=== PATIENT | male | born 1965 | race Caucasian/White ===

== ENCOUNTER → 2019-10-17 07:44 | Outpatient (CLI) | payer OTHER, SELFPAY ==
--- NOTE | ~2019-10-17 | CT_ITS ---
EXAMINATION: CT abdomen pelvis wo con DATE: 10/17/2019 08:03 INDICATION: History of bladder stone, urinary frequency TECHNIQUE: Computed tomography (CT) of the abdomen and pelvis was performed without intravenous contr ast. The dose-length product (DLP) was 492.64 mGy-cm. Automated exposure control and iterative recons truction technique were employed. COMPARISON: 07/21/2015 FINDINGS: Minimal dependent atelectasis is present in the lung bases. The heart size is normal. The l iver, spleen, pancreas, gallbladder, and adrenal glands are normal. The kidneys are unremarkable. The re is no hydronephrosis or hydroureter. Multiple tiny stones layer in the dependent portion of the bl adder. One stone measures up to 3 mm. There are calcifications of the prostate. No pathologically enl arged abdominal or pelvic lymph nodes are identified. There is no free intraperitoneal gas or evidenc e of bowel obstruction. The appendix is normal. A moderate volume of colonic stool is present. There is mild lower thoracic spondylosis. Colonic diverticulosis is present without evidence of diverticu litis. IMPRESSION: 1. Multiple bladder stones, the largest of which measures 3 mm. 2. Constipation Reviewed, dictated and finalized at location A. T TOSSER
== END ==
PROVIDERS: Visit Provider Urology
DX: Z87.448 Personal history of other diseases of urinary system (principal); K59.00 Constipation, unspecified; N21.0 Calculus in bladder
CPT/HCPCS: 74176

== ENCOUNTER 2020-04-27 20:06 | Emergency (ER) | payer OTHER, SELFPAY ==
[2020-04-27 20:23] VITALS: BP 124/70; PULSE 107; RESP 20; TEMP 38.1; O2SAT 97
[2020-04-27 21:11] LABS: Add Urine Microscopic? YES; Amorphous Sediment Urine Few; Appearance Urine Cloudy (Clear); Bacteria Urine Trace /hpf; Bilirubin Urine Negative (Negative); Color Urine Amber (Yellow); Glucose Urine UA Negative (Negative); Ketones Urine Negative (Negative); Leukocyte Esterase Ur 3+ LEU/UL (Negative); Nitrate Urine Negative (Negative); Protein Urine 1+ mg/dL (Negative); Specific Grav Ur 1.021 (1.001-1.035); Urobilinogen Urine Negative mg/dL (<2.0); WBC Urine >75 /hpf
[2020-04-27 21:13] LABS: Blood Urine Negative (Negative)
--- NOTE | 2020-04-27 21:33 | ED.FEVER ---
HPI - Fever General Chief Complaint: Fever Stated Complaint: fever, decreased UO Time Seen by Provider: 04/27/20 21:22 History of Present Illness HPI Narrative: Patient is a 55-year-old male who presents ER with dysuria and fever. Patient underwent a urodynamic study on where he had a catheter inserted into his bladder. He also has history of bladder stones. Reports he is unable to fully empty his bladder at that time. They then drained him and sent him home. Reports since then he has had a lot of urinary frequency especially at night. Cannot fully empty. He is developed dysuria. Today he developed a fever up to 102 ?F. No chest pain or chest pressure. No real abdominal pain or flank pain. PCP referred him to the ER for further evaluation. Had a similar episode like this 6 years ago. Related Data Home Medications Medication Instructions Recorded Confirmed albuterol sulfate 90 mcg/actuation 2 puff INHALATION Q4H PRN gm 09/14/19 04/09/20 aerosol inhaler alprazolam 0.25 mg tablet 0.25 mg PO DAILY PRN 09/14/19 04/09/20 montelukast 10 mg tablet 10 mg PO DAILY 09/14/19 04/09/20 tamsulosin 0.4 mg capsule 0.4 mg PO DAILY 09/14/19 04/09/20 triamcinolone acetonide 0.1 % 1 applic TOPICAL BID 09/14/19 04/09/20 topical cream triamcinolone acetonide 55 mcg 2 spray NASAL DAILY 04/09/20 04/09/20 nasal spray aerosol Allergies Allergy/AdvReac Type Severity Reaction Status Date / Time aspirin Allergy Unknown Skin Verified 04/27/20 20:55 Reaction ibuprofen Allergy Unknown Skin Verified 04/27/20 20:55 Reaction Penicillins Allergy Unknown Skin Verified 04/27/20 20:55 Reaction sulfamethoxazole Allergy Unknown HIVES Verified 04/27/20 20:55 sulfite Allergy Unknown Skin Verified 04/27/20 20:55 Reaction trimethoprim Allergy Unknown HIVES Verified 04/27/20 20:55 NAPROXEN SODIUM Allergy Unknown Unknown Uncoded 04/27/20 20:55 Review of Systems Review of Systems: All systems reviewed & are unremarkable except as noted in HPI and below Constitutional: Constitutional: Denies chills, Denies fatigue and Reports fever(s) ENT: Denies nasal congestion and Denies sore throat Cardiovascular: Cardiovascular: Denies chest pain, Denies rapid heart rate and Denies radiating jaw, neck or arm pain Respiratory: Respiratory: Denies cough, Denies dyspnea and Denies wheezing Gastrointestinal: Gastrointestinal: Denies abdominal pain, Denies nausea and Denies vomiting Genitourinary: Genitourinary: Reports oliguria, Reports dysuria and Reports urinary frequency PMFSH Past Medical History Medical History (Updated 04/27/20 @ 22:35 by Santy Santos MD) Calculus of kidney Colon polyp Enlarged prostate with lower urinary tract symptoms (LUTS) Obstructive sleep apnea Right rotator cuff tear Surgical History Surgical History (Updated 04/27/20 @ 21:35 by Santy Santos MD) H/O transurethral resection of prostate History of endoscopic sinus surgery Social History Social History Smoking status: Never smoker Alcohol intake: never Exam Narrative: Exam Narrative: GENERAL: Well-appearing, well-nourished, and in no acute distress. HEAD: Normocephalic, atraumatic. CHEST: Clear to auscultation. No respiratory distress. HEART: Regular rate and rhythm. Normal peripheral pulses. ABDOMEN: Soft, nontender, nondistended. EXTREMITIES: Normal range of motion. No edema. SKIN: Warm, dry, no rash. NEURO: Alert and oriented x3. PSYCH: Normal mood and affect. 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 Over 400 out. Will start on oral antibiotics and keep Santos in. Needs a follow-up with urology in the next week per Dr. Parker. Vital Signs Vital signs: Vital Signs Temperature 100.5 F H 04/27/20 20:23 Pulse Rate 107 H 04/27/20 20:23 Respiratory Rate 20 04/27/20 20:23 Blood Pressure 124/70 04/27/20 20:23 Pulse Oximetry 97
[2020-04-27 21:49] LABS: Basophils Absolute Auto 0.1 K/mm3 (0.0-0.1); Basophils Percent Auto 0.5 % (0.2-1.2); Eosinophils Absolute Auto 0.6 K/mm3 (0-0.3); Eosinophils Percent Auto 3.7 % (0-4.4); Hematocrit 42.1 % (42.0-52.0); Hemoglobin 14.5 g/dL (14.0-18.0); Immature Granulocyte Absolute 0.08 K/mm3 (0.00-0.031); Immature Granulocyte Percent A 0.5 % (0-0.5); Lymphocytes Absolute Auto 1.62 K/mm3 (0.9-3.2); Lymphocytes Percent Auto 9.9 % (18.3-44.2); Mean Corpuscular HGB Conc 34.4 g/dl (32-36); Mean Corpuscular Hemoglobin 31.6 pg (26-34); Mean Corpuscular Volume 91.7 fl (80-100); Mean Platelet Volume 9.8 fl (7.4-10.4); Monocytes Absolute Auto 1.4 K/mm3 (0.1-0.6); Monocytes Percent Auto 8.2 % (2.6-8.5); Neutrophils Absolute Auto 12.7 K/mm3 (1.3-6.7); Neutrophils Percent Auto 77.2 % (45.5-73.1); Platelet Count Result 196 k/mm3 (150-375); Red Blood Count 4.59 M/mm3 (4.6-6.20); Red Cell Distribution Width 13.2 % (11.5-14.5); White Blood Count 16.4 K/mm3 (4.5-10.0)
[2020-04-27 21:59] LABS: Potassium 3.7 mmol/L (3.4-5.0)
[2020-04-27 22:02] LABS: Anion Gap 8 mmol/L (8-16); Blood Urea Nitrogen 18 mg/dL (9-20); Calcium 8.7 mg/dL (8.4-10.2); Carbon Dioxide 25 mmol/L (22-30); Chloride 103 mmol/L (98-107); Estimated CRCL calculation 64 ml/min; Estimated Glomerular Filt Rate > 60; Glucose 123 mg/dL (75-110); Sodium 136 mmol/L (137-145)
[2020-04-27 23:19] VITALS: BP 120/77; PULSE 99; RESP 18; TEMP 37.7; O2SAT 99
== END 2020-04-27 23:21 | disposition home or self-care (01) ==
PROVIDERS: Emergency Provider Emergency Medicine; PCP Family Medicine
DX: N39.0 Urinary tract infection, site not specified (principal); R33.8 Other retention of urine; N40.1 Benign prostatic hyperplasia with lower urinary tract symptoms; G47.33 Obstructive sleep apnea (adult) (pediatric); Z87.442 Personal history of urinary calculi; Z86.010 Personal history of colon polyps
CPT/HCPCS: 36415; 51702; 80048; 81001; 85025; 87077; 87086; 87088; 87186; 99283

== ENCOUNTER 2020-05-13 03:21 | Outpatient (CLI) | payer OTHER, SELFPAY ==
[2020-05-13 20:03] LABS: SARS-CoV-2 RNA PCR Negative
== END 2020-05-13 03:22 | disposition home or self-care (01) ==
LOC: ANHCOVIDDT 03:21
PROVIDERS: PCP Family Medicine; Visit Provider Urology
DX: Z01.812 Encounter for preprocedural laboratory examination (principal); Z20.828 Contact with and (suspected) exposure to other viral communicable diseases
CPT/HCPCS: 87635; C9803; U0003

== ENCOUNTER 2020-05-13 08:29 | Outpatient (CLI) | payer OTHER, SELFPAY ==
--- NOTE | 2020-05-13 08:31 | ECG_ITS ---
Measurements Intervals [place] Rate: 66 P: 58 ID: 141 QRS: 28 QRSD: 94 T: 27 QT: 378 QTc: 397 Interpretive Statements SINUS RHYTHM DELAYED PRECORDIAL R/S TRANSITION NONSPECIFIC ST & T-WAVE ABNORMALITY- INFERIOR LEADS BASELINE ARTIFACT- I, II, III, AVR, AVL, AVF BORDERLINE ECG Electronically Signed On 05-13-2020 8:59:48 CDT by Sal Martinez D.O.
== END 2020-05-13 08:30 | disposition home or self-care (01) ==
LOC: ANHSURGERY 08:31
PROVIDERS: PCP Family Medicine; Visit Provider Urology
DX: Z01.818 Encounter for other preprocedural examination (principal); I49.9 Cardiac arrhythmia, unspecified
CPT/HCPCS: 93005

== ENCOUNTER 2020-05-15 01:39 | Day surgery (SDC) | payer OTHER, SELFPAY ==
[2020-05-06 08:21] VITALS: BMI 28.8
--- NOTE | 2020-05-15 06:45 | WPDHPUPDATE1 ---
History and Physical Update Update Date/Time: 05/15/20 06:45 History and Physical has been reviewed, including an updated exam of the patient. There are NO changes in the patient's condition. Risks, benefits, and alternatives have been discussed and questions answered. Patient agrees to proceed with procedure.
[2020-05-15 12:42] VITALS: BP 128/72; PULSE 57; RESP 18; TEMP 35.8; O2SAT 99
[2020-05-15] MEDS: LACTATED RINGERS 1,000 ML 30 ML IV CONT (13:00)
--- NOTE | 2020-05-15 13:26 | WPDANESEPPF ---
Anes - Initial Pre Proc Eval Procedure: Operation Date: 05/15/20 14:00 Proposed Procedures p Optical Internal Urethrotomy - Cale Parker MD Date/Time: 05/15/20 13:26 Surgeon: Cale Parker MD Pre Op Diagnosis: Bulbous Urethral Stricture Patient Data Age: 55 Gender: M Height: 5 ft 8 in Weight: 83.4 kg Last Vital Signs Temp 35.8 C L 05/15/20 12:42 Pulse 57 L 05/15/20 12:42 Resp 18 05/15/20 12:42 BP 128/72 05/15/20 12:42 Pulse Ox 99 05/15/20 12:42 Allergies Allergy/AdvReac Type Severity Reaction Status Date / Time Penicillins Allergy Unknown UNKNOWN Verified 05/15/20 12:47 REACTION sulfamethoxazole Allergy Unknown HIVES Verified 05/15/20 12:47 sulfite Allergy Unknown Skin Verified 05/15/20 12:47 Reaction trimethoprim Allergy Unknown HIVES Verified 05/15/20 12:47 aspirin AdvReac Unknown Gastrointestinal Verified 05/15/20 12:47 Upset ibuprofen AdvReac Unknown Gastrointestinal Verified 05/15/20 12:47 Upset NAPROXEN SODIUM AdvReac Unknown Gastrointestinal Uncoded 05/15/20 12:47 Upset Home Medications Medication Instructions Recorded Confirmed Type albuterol sulfate 90 mcg/actuation 2 puff INHALATION Q4H PRN gm 09/14/19 05/15/20 History aerosol inhaler alprazolam 0.25 mg tablet 0.25 mg PO DAILY PRN 09/14/19 05/15/20 History montelukast 10 mg tablet 10 mg PO DAILY 09/14/19 05/15/20 History tamsulosin 0.4 mg capsule 0.4 mg PO DAILY 09/14/19 05/15/20 History sertraline 50 mg tablet 50 mg PO DAILY #90 tablet 12/04/19 05/15/20 Rx fluticasone 250 mcg-salmeterol 50 1 inhalation INHALATION BID #60 04/09/20 05/15/20 Rx mcg/dose blistr powdr for each inhalation triamcinolone acetonide 55 mcg 2 spray NASAL DAILY PRN 04/09/20 05/15/20 History nasal spray aerosol Macuguard 1 cap PO DAILY 05/06/20 05/15/20 History Ultra Prostate 1 cap PO BID 05/06/20 05/15/20 History azelastine 2 spray INTRANASAL DIRECTED PRN 05/06/20 05/15/20 History garlic 2 mg PO BID 05/06/20 05/15/20 History multivitamin 1 tablet PO DAILY 05/06/20 05/15/20 History doxycycline hyclate 100 mg capsule 100 mg PO BID 10 Days #20 cap 05/07/20 05/15/20 Rx Patient hx anesthesia problems: none Family hx anesthesia problems: none PMFSH Past Medical History Medical History Calculus of kidney Colon polyp Enlarged prostate with lower urinary tract symptoms (LUTS) Obstructive sleep apnea Right rotator cuff tear Surgical History Surgical History H/O transurethral resection of prostate History of endoscopic sinus surgery Family History Family History Mother Cerebrovascular accident Social History Social History Smoking status: Never smoker Alcohol intake: never Drinks per week: 2 Spiritual care concerns: No Anes - Eval Final PreProcedure Day of Procedure 05/15/20 13:26 Patient weight: overweight Heart: regular rate and rhythm Lungs: clear to auscultation Airway: Mallampati scale class II Neurological: alert and oriented Last oral intake: >/= 8 hours ASA classification: III Emergent: no Anesthetic plan: proceed Anesthesia type and monitoring: general LMA and standard monitoring Informed Consent: The patient's anesthetic plan and its attendant risks and benefits were discussed with the patient/family/POA. Questions were solicited and answers provided to the satisfaction of the patient/family/POA.
[2020-05-15] MEDS: levoFLOXacin 500 MG/D5W 100 ML 500 MG/100 ML BAG 100 MG IVPB (14:56)
[2020-05-15] MEDS: LIDOCAINE HCL 2% GEL UROJET 10 ML PKG MUCOUS MEM (15:24)
[2020-05-15 15:31] VITALS: BP 103/71; PULSE 67; RESP 12; O2SAT 97
--- NOTE | 2020-05-15 15:42 | P.OP_ITS ---
Procedure Note - Detailed Date of procedure: 05/15/20 Pre-op diagnosis: Bulbous Urethral Stricture Post-op diagnosis: same Procedure performed: Optical internal urethrotomy Description of procedure: The patient was brought to the operative suite where he was prepped and draped in a routine sterile fashion while in a dorsal lithotomy position after the uneventful administration of systemic sedation by the anesthesia department. 2% Lidocaine was placed in the uretha and allowed to stand for an appropriate period of time. Cystoscopy was undertaken with a 19F rigid cystoscope. He has a moderately constricting stricture of the bulbous ure thra and proximal urethra. The bladder itself was endoscopically normal without foreign body or neoplasm. The bladder mucosa was without hyperemia. There was a single orthotopic ureteral orifice bilaterally with clear reflex of urine. Using the optical urethratome, I incised the strictured urethra at the 12 o'clock position care taken to avoid injury to the membranous urethra. An 18F Santos catheter was placed, the bladder was emptied and the patient was taken to the recovery room in good condition. Anesthesia: GLMA Surgeon: Cale Parker MD Estimated blood loss (mL): 0 Drains: Yes (18F Santos) Packing: No Pathology: none sent Complications: No immediate complications Condition: stable Disposition: PACU
[2020-05-15 16:00] VITALS: BP 112/66; PULSE 66; RESP 12; O2SAT 97
--- NOTE | 2020-05-15 16:09 | SUR.PHASEII ---
LARGE URINE BAG ORDERED FOR NIGHTTIME.
[2020-05-15 16:28] VITALS: BP 123/80; PULSE 59; RESP 12
== END 2020-05-15 16:52 | disposition home or self-care (01) ==
PROVIDERS: PCP Family Medicine; Visit Provider Urology
PROC: (CPT 52276; principal; 2020-05-15 14:00)
DX: N35.912 Unspecified bulbous urethral stricture, male (principal); G47.33 Obstructive sleep apnea (adult) (pediatric)
CPT/HCPCS: 52276; J1100; J1956; J2250; J2405; J2704; J3010; J7120

== ENCOUNTER → 2020-12-05 08:20 | Outpatient (CLI) | payer OTHER, SELFPAY ==
--- NOTE | ~2020-12-05 | CT_ITS ---
EXAMINATION: CT abdomen pelvis wo con DATE: 12/05/2020 08:39 INDICATION: History of bladder stones TECHNIQUE: Computed tomography (CT) of the abdomen and pelvis was performed without intravenous contr ast. The dose-length product (DLP) was 663.44 mGy-cm. Automated exposure control and iterative recons truction technique were employed. COMPARISON: 10/17/2019 FINDINGS: Minimal dependent atelectasis is present in the lung bases. The heart size is normal. The l iver, pancreas, gallbladder, and adrenal glands are normal. Punctate calcifications in an otherwise n ormal spleen likely represent healed granulomatous disease. The kidneys are unremarkable. There is no hydronephrosis or hydroureter. There are multiple stones layering in the dependent portion of the bl adder which measure up to 7 mm. There has been increase in size and number of the stones since the co mparison examination. The prostate is enlarged and demonstrates central calcification. No pathologica lly enlarged abdominal or pelvic lymph nodes are identified. There is no free intraperitoneal gas or evidence of bowel obstruction. IMPRESSION: 1. Multiple bladder stones, measuring up to 7 mm, with increase in size and number since the comparis on examination. Reviewed, dictated and finalized at location B. IMPRESSION: 1. Multiple bladder stones, measuring up to 7 mm, with increase in size and num sae since the comparison examination.
== END ==
PROVIDERS: PCP Family Medicine; Visit Provider Urology
DX: Z87.448 Personal history of other diseases of urinary system (principal); N21.0 Calculus in bladder
CPT/HCPCS: 74176

== ENCOUNTER → 2020-12-23 02:14 | Outpatient (CLI) | payer OTHER, SELFPAY ==
[2020-12-23 19:23] LABS: SARS-CoV-2 RNA PCR Negative
== END ==
PROVIDERS: PCP Family Medicine; Visit Provider Urology
DX: Z01.812 Encounter for preprocedural laboratory examination (principal); Z20.822 Contact with and (suspected) exposure to COVID-19
CPT/HCPCS: C9803; U0003; U0005

== ENCOUNTER 2020-12-25 01:05 | Day surgery (SDC) | payer OTHER, SELFPAY ==
[2020-12-16 14:11] VITALS: BMI 28.1
--- NOTE | 2020-12-18 07:19 | PM.HPGS ---
History of Present Illness History of Present Illness Consent: Risks, benefits, and alternatives have been discussed and questions answered. Patient agrees to proceed with procedure. Chief complaint: enlarged bladder stones Narrative: Mil Irvin is a 55 year old male with a history of recurring urethral strictures. After recently reporting passing several small stones a CT scan of the abdomen and pelvis reveals multiple bladder calculi up to 7 mm. He presents for cystoscopy with laser lithotripsy of bladder stone extraction Review of Systems Cardiovascular: Cardiovascular: Denies chest pain, Denies lightheadedness, Denies palpitations and Denies dyspnea Respiratory: Respiratory: Denies dyspnea Gastrointestinal: Gastrointestinal: Denies diarrhea, Denies nausea and Denies vomiting Genitourinary: Genitourinary: Denies hematuria and Denies dysuria Endocrine: Endocrine: Denies palpitations PMFSH Past Medical History Medical History Calculus of kidney Colon polyp Enlarged prostate with lower urinary tract symptoms (LUTS) Mixed hyperlipidemia Obstructive sleep apnea Overweight (BMI 25.0-29.9) Right rotator cuff tear Surgical History Surgical History H/O transurethral resection of prostate History of endoscopic sinus surgery Family History Family History Mother Cerebrovascular accident Social History Social History Smoking status: Never smoker Alcohol intake: current Drinks per week: 2 Substance use: never Substance use type: does not use Spiritual care concerns: No Meds Home Medications and Allergies Home Medications Medication Instructions Recorded Confirmed Type albuterol sulfate 90 mcg/actuation 2 puff INHALATION Q4H PRN gm 09/14/19 12/16/20 History aerosol inhaler alprazolam 0.25 mg tablet 0.25 mg PO DAILY PRN 09/14/19 12/16/20 History tamsulosin 0.4 mg capsule 0.4 mg PO DAILY 09/14/19 12/16/20 History fluticasone 250 mcg-salmeterol 50 1 inhalation INHALATION BID #60 04/09/20 12/16/20 Rx mcg/dose blistr powdr for each inhalation Ultra Prostate 1 cap PO BID 05/06/20 12/16/20 History garlic 2 mg PO BID 05/06/20 12/16/20 History multivitamin 1 tablet PO DAILY 05/06/20 12/16/20 History sertraline 50 mg tablet 50 mg PO DAILY #90 tablet 07/07/20 12/16/20 Rx atorvastatin 10 mg tablet 10 mg PO DAILY #90 tablet 10/10/20 12/16/20 Rx montelukast 10 mg PO DAILY 12/16/20 12/16/20 History Allergies Allergy/AdvReac Type Severity Reaction Status Date / Time sulfamethoxazole Allergy Severe HIVES Verified 12/16/20 14:28 trimethoprim Allergy Severe HIVES Verified 12/16/20 14:28 sulfite Allergy Mild Skin Verified 12/16/20 14:28 Reaction Penicillins Allergy Unknown UNKNOWN Verified 12/16/20 14:28 REACTION Sulfa (Sulfonamide Allergy Unknown Unknown Verified 12/16/20 14:28 Antibiotics) aspirin AdvReac Mild Gastrointestinal Verified 12/16/20 14:28 Upset ibuprofen AdvReac Mild Gastrointestinal Verified 12/16/20 14:28 Upset NAPROXEN SODIUM AdvReac Mild Gastrointestinal Uncoded 12/16/20 14:28 Upset Exam Const: General: no acute distress Resp: Effort & Inspection: normal respiratory effort GI: Inspection: non-distended GI Palp: No abdominal tenderness and No Guarding due to palpation present (GI) Auscultation: normal bowel sounds Assessment and Plan Assessment and plan (1) Enlarged prostate with lower urinary tract symptoms (LUTS): Code(s): N40.1 - Benign prostatic hyperplasia with lower urinary tract symptoms Status: Acute (2) Bladder stones: Code(s): N21.0 - Calculus in bladder Status: Acute Assessment and Plan: Cystoscopy, laser lithotripsy and extraction bladder stones
[2020-12-25 06:41] VITALS: BP 121/72; PULSE 54; RESP 14; TEMP 36.3; O2SAT 99
--- NOTE | 2020-12-25 07:06 | WPDANESEPPF ---
Anes - Initial Pre Proc Eval Procedure: Operation Date: 12/25/20 08:30 Proposed Procedures p Cystoscopy, Bladder Stone Extraction, - Cale Parker MD s Holmium Laser Lithotripsy - Cale Parker MD Date/Time: 12/25/20 07:06 Surgeon: Cale Parker MD Pre Op Diagnosis: enlarged bladder stones Patient Data Age: 55 Gender: M Height: 5 ft 8 in Weight: 84 kg Allergies Allergy/AdvReac Type Severity Reaction Status Date / Time sulfamethoxazole Allergy Severe HIVES Verified 12/16/20 14:28 trimethoprim Allergy Severe HIVES Verified 12/16/20 14:28 sulfite Allergy Mild Skin Verified 12/16/20 14:28 Reaction Penicillins Allergy Unknown UNKNOWN Verified 12/16/20 14:28 REACTION Sulfa (Sulfonamide Allergy Unknown Unknown Verified 12/16/20 14:28 Antibiotics) aspirin AdvReac Mild Gastrointestinal Verified 12/16/20 14:28 Upset ibuprofen AdvReac Mild Gastrointestinal Verified 12/16/20 14:28 Upset NAPROXEN SODIUM AdvReac Mild Gastrointestinal Uncoded 12/16/20 14:28 Upset Home Medications Medication Instructions Recorded Confirmed Type albuterol sulfate 90 mcg/actuation 2 puff INHALATION Q4H PRN gm 09/14/19 12/16/20 History aerosol inhaler alprazolam 0.25 mg tablet 0.25 mg PO DAILY PRN 09/14/19 12/16/20 History tamsulosin 0.4 mg capsule 0.4 mg PO DAILY 09/14/19 12/16/20 History fluticasone 250 mcg-salmeterol 50 1 inhalation INHALATION BID #60 04/09/20 12/16/20 Rx mcg/dose blistr powdr for each inhalation Ultra Prostate 1 cap PO BID 05/06/20 12/16/20 History garlic 2 mg PO BID 05/06/20 12/16/20 History multivitamin 1 tablet PO DAILY 05/06/20 12/16/20 History sertraline 50 mg tablet 50 mg PO DAILY #90 tablet 07/07/20 12/16/20 Rx atorvastatin 10 mg tablet 10 mg PO DAILY #90 tablet 10/10/20 12/16/20 Rx montelukast 10 mg PO DAILY 12/16/20 12/16/20 History Patient hx anesthesia problems: none Family hx anesthesia problems: none [facility] Past Medical History Medical History Calculus of kidney Colon polyp Enlarged prostate with lower urinary tract symptoms (LUTS) Mixed hyperlipidemia Obstructive sleep apnea Overweight (BMI 25.0-29.9) Right rotator cuff tear Surgical History Surgical History H/O transurethral resection of prostate History of endoscopic sinus surgery Family History Family History Mother Cerebrovascular accident Social History Social History Smoking status: Never smoker Alcohol intake: current Drinks per week: 2 Alcohol use details: 2-3/MONTH Substance use: never Substance use type: does not use Living arrangements: with family Spiritual care concerns: No Anes - Eval Final PreProcedure Day of Procedure 12/25/20 07:06 Patient weight: overweight Heart: regular rate and rhythm Lungs: decreased breath sounds Airway: Mallampati scale class II Neurological: alert and oriented Last oral intake: >/= 8 hours ASA classification: III Emergent: no Anesthetic plan: proceed Anesthesia type and monitoring: general LMA and standard monitoring Informed Consent: The patient's anesthetic plan and its attendant risks and benefits were discussed with the patient/family/POA. Questions were solicited and answers provided to the satisfaction of the patient/family/POA.
--- NOTE | 2020-12-25 07:22 | WPDHPUPDATE1 ---
History and Physical Update Update Date/Time: 12/25/20 07:22 History and Physical has been reviewed, including an updated exam of the patient. There are NO changes in the patient's condition. Risks, benefits, and alternatives have been discussed and questions answered. Patient agrees to proceed with procedure.
[2020-12-25 07:41] VITALS: BMI 28.5
[2020-12-25] MEDS: LACTATED RINGERS 1,000 ML 30 ML IV CONT (07:45)
[2020-12-25] MEDS: levoFLOXacin 500 MG/D5W 100 ML 500 MG/100 ML BAG 100 MG IVPB (08:29)
[2020-12-25 09:05] VITALS: BP 80/49; PULSE 61; RESP 10; O2SAT 95
--- NOTE | 2020-12-25 09:07 | PM.PROC ---
Procedure Note - Detailed Date of procedure: 12/25/20 Pre-op diagnosis: enlarged bladder stones Post-op diagnosis: other ( 1. Bulbous urethral stricture 2. Multiple bladder stones) Procedure performed: Cystoscopy, urethral dilatation and extraction bladder stones Description of procedure: patient is brought to the operative suite where he has prepped draped in routine sterile fashion while in dorsal lithotomy position. 2% xylocaine jelly was introduced into urethral in systemic sedation is administered per the anesthesia department. Cystoscopy is undertaken with a 19 F rigid cystoscope. He has a moderately constricting bulbous urethral stricture which I dilated from 16-24 F with Angi sounds. He has about 12-15 bladder stones and measure 1.0-1.5 cm in then multiple punctate stones. The larger stones were extracted using a 27 F resectoscope and loop to grasp them. The remainder of the stones were evacuated with the [employer] evacuator. There was negligible bleeding. I opted not to leave a urethral catheter. Scopes and wires removed. Anesthesia: MAC Surgeon: Cale Parker MD Estimated blood loss (mL): 0 Drains: No Packing: No Pathology: yes Complications: No immediate complications Condition: stable Disposition: PACU
[2020-12-25 09:10] VITALS: BP 110/66; PULSE 70; RESP 16; O2SAT 96
[2020-12-25 09:30] VITALS: BP 110/69; PULSE 67; RESP 16; O2SAT 96
[2020-12-25 09:55] VITALS: BP 125/71; PULSE 55; RESP 16; O2SAT 97
== END 2020-12-25 10:02 | disposition home or self-care (01) ==
PROVIDERS: PCP Family Medicine; Visit Provider Urology
PROC: (CPT 52352; principal; 2020-12-25 08:30)
DX: N21.0 Calculus in bladder (principal); N35.912 Unspecified bulbous urethral stricture, male; N40.1 Benign prostatic hyperplasia with lower urinary tract symptoms; E78.2 Mixed hyperlipidemia; G47.33 Obstructive sleep apnea (adult) (pediatric); Z79.51 Long term (current) use of inhaled steroids
CPT/HCPCS: 52310; 82365; 88300; A9270; C1769; J1956; J2250; J2310; J2704; J3010; J7120

== ENCOUNTER → 2021-04-11 02:15 | Outpatient (CLI) | payer OTHER, SELFPAY ==
[2021-04-12 01:35] LABS: SARS-CoV-2 RNA PCR Negative
== END ==
PROVIDERS: PCP Family Medicine; Visit Provider Family Medicine
DX: J02.9 Acute pharyngitis, unspecified (principal); R51.9 Headache, unspecified; Z20.822 Contact with and (suspected) exposure to COVID-19
CPT/HCPCS: C9803; U0003; U0005

== ENCOUNTER → 2022-01-21 14:39 | Outpatient (CLI) | payer OTHER, SELFPAY ==
--- NOTE | ~2022-01-21 | XR_ITS ---
EXAMINATION: XR hand RT min 3V INDICATION: Primary osteoarthritis of the right hand TECHNIQUE: Three views of the right hand are obtained. COMPARISON: None available FINDINGS: There is severe osteoarthritis of the fifth distal interphalangeal joint. Mild osteoarthrit is is noted in multiple other interphalangeal joints. No fracture is identified. The soft tissues are unremarkable. IMPRESSION: 1. 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 Reviewed, dictated and finalized at location F. IMPRESSION: 1. 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
== END ==
PROVIDERS: PCP Family Medicine; Visit Provider Family Medicine
DX: M19.041 Primary osteoarthritis, right hand (principal)
CPT/HCPCS: 73130

== ENCOUNTER 2022-08-18 09:00 | Emergency (ER) | payer OTHER, SELFPAY ==
--- NOTE | 2022-08-18 09:06 | PC.NURSE ---
PT WANTED AT [facility], ADVISED THIS WAS NOT ABLE TO BE DONE HERE AND HE DECIDED TO GO TO HIS UROLOGIST.
== END 2022-08-18 09:07 | disposition left against medical advice (07) ==
LOC: EXPGOSH 09:56
PROVIDERS: Emergency Provider Nurse Practitioner Family; PCP Urology
DX: Z53.21 Procedure and treatment not carried out due to patient leaving prior to being seen by health care provider (principal)
CPT/HCPCS: 99199

== ENCOUNTER 2022-09-09 01:58 | Day surgery (SDC) | payer OTHER, SELFPAY ==
[2022-09-03 14:46] VITALS: BMI 29.2
--- NOTE | 2022-09-03 14:53 | PC.NURSE ---
Report to the Outpatient Waiting Room, entrance under the green pavilion located off [facility], at time 1200 on date 09/09/22. Planned Procedure Time: 1400. Time changes happen often and if your time is changed the preop area will call you the afternoon before. - You and your visitor will be asked to self-screen and do not enter if you have any COVID symptoms. - Only one visitor is requested with a max of two and NO children visitors are allowed at this time. - The patient visitor may be requested to leave or wait in car when not with patient due to distancing restrictions. - A mask is optional within the hospital. Patients may have clear liquids (water, carbonated beverages, clear teas, apple juice) until 3 hours prior to surgery with a maximum of 20 ounces. - No food from midnight until time of surgery Take the following medications with a SIP of water the morning of surgery: INHALERS, SERTRALINE, XANAX IF NEEDED Medications to discontinue per physician: VITAMINS/SUPPLEMENTS Date to take last dose: 09/05/22 Please no make-up, nail japanese, hairspray, perfume, deodorant, or body powder the day of surgery. No jewelry (including any body piercings) or valuables the day of surgery, leave them at home. Please take a shower or bath the night before, or the morning of, surgery with an antibacterial soap. Wear comfortable, loose fitting clothing. - Jewelry must be removed prior to entering the operating room. Rings and piercings that are not removed may be cut off. - The hospital will not accept responsibility for valuables. - Please leave all valuables, including medications, at home the day of surgery. If you are going home after surgery, a licensed putaway driver must drive you home. - NO public transportation without another adult if you receive anesthesia. - We recommend that an adult stay with you for 24 hours following discharge. - We also recommend that you do not drive, make important decision, drink alcoholic beverages, or take any drugs that were not prescribed by your health care provider for at least 24 hours after your discharge time. Follow any additional instructions given to you from your surgeon. If you or anyone in your household have experienced Covid symptoms in the past week, please notify your surgeon or the nurse liaison at the phone number below for possible testing. Telephone instructions given to PT - JUANITO LION and asked if any additional questions and then verbalized understanding. Patient advised to call surgeon office or pre surgery nurse liaison [phone] if any additional questions.
--- NOTE | 2022-09-08 12:22 | WPDANESEPPF ---
Anes - Initial Pre Proc Eval Procedure: Operation Date: 09/09/22 13:30 Proposed Procedures p Cystoscopy, Urethral Dilatation, Bladder Stone Extraction - Cale Pakrer MD Date/Time: 09/08/22 12:22 Surgeon: Cale Parker MD Pre Op Diagnosis: bladder stones, Patient Data Age: 57 Gender: M Height: 1.73 m Weight: 87.1 kg Allergies Allergy/AdvReac Type Severity Reaction Status Date / Time sulfamethoxazole Allergy Severe HIVES Verified 09/09/22 11:40 trimethoprim Allergy Severe HIVES Verified 09/09/22 11:40 sulfite Allergy Mild Skin Verified 09/09/22 11:40 Reaction Penicillins Allergy Unknown UNKNOWN Verified 09/09/22 11:40 REACTION Sulfa (Sulfonamide Allergy Unknown Rash Verified 09/09/22 11:40 Antibiotics) aspirin AdvReac Mild Gastrointestinal Verified 09/09/22 11:40 Upset ibuprofen AdvReac Mild Gastrointestinal Verified 09/09/22 11:40 Upset NAPROXEN SODIUM AdvReac Mild Gastrointestinal Uncoded 09/09/22 11:40 Upset Home Medications Medication Instructions Recorded Confirmed Type albuterol sulfate 90 mcg/actuation 2 puff inhalation Q4H PRN 09/14/19 09/09/22 History aerosol inhaler (ProAir HFA) Shortness Of Breath alprazolam 0.25 mg tablet 0.25 mg PO DAILY PRN Anxiety 09/14/19 09/09/22 History tamsulosin 0.4 mg capsule 0.4 mg PO DAILY 09/14/19 09/09/22 History garlic 2 mg PO BID 05/06/20 09/09/22 History multivitamin 1 tablet PO DAILY 05/06/20 09/09/22 History sertraline 50 mg tablet See Rx Instructions .Route 06/11/22 09/09/22 Rx .COMPLEX #90 tabs meloxicam 15 mg tablet 15 mg PO DAILY #90 tabs 07/29/22 09/09/22 Rx montelukast 10 mg tablet See Rx Instructions .Route 07/29/22 09/09/22 Rx .COMPLEX #90 tabs fluticasone 250 mcg-salmeterol 50 1 inh inhalation BID 09/03/22 09/09/22 History mcg/dose blistr powdr for inhalation (Advair Diskus) cephalexin 500 mg capsule 500 mg PO Q8H #12 caps 09/09/22 Rx hydrocodone 5 mg-acetaminophen 325 1 - 2 tablet PO Q6H PRN pain #20 09/09/22 Rx mg tablet tabs Patient hx anesthesia problems: none Family hx anesthesia problems: none Results Review: All pre-operative results and documents have been reviewed as part of the pre-operative evaluation. REPLACED BY [facility] Past Medical History Medical History (Updated 09/08/22 @ 12:23 by Lobo Loya, ) Anxiety Asthma Calculus of kidney Colon polyp COPD (chronic obstructive pulmonary disease) COVID-19 Depression Enlarged prostate with lower urinary tract symptoms (LUTS) Mixed hyperlipidemia Obstructive sleep apnea do not use CPAP Overweight (BMI 25.0-29.9) Right rotator cuff tear Tubular adenoma of colon Surgical History Surgical History H/O transurethral resection of prostate History of endoscopic sinus surgery Family History Family History Mother Cerebrovascular accident Social History Social History Smoking status: Never smoker Alcohol intake: current Drinks per week: 2 Alcohol use details: 2-3/MONTH Substance use: never Substance use type: does not use Living arrangements: with family Spiritual care concerns: No Anes - Eval Final PreProcedure Day of Procedure 09/08/22 12:22 Patient weight: overweight Heart: regular rate and rhythm Lungs: clear to auscultation Airway: Mallampati scale class II Neurological: alert and oriented Last oral intake: >/= 8 hours ASA classification: III Emergent: no Anesthetic plan: proceed Anesthesia type and monitoring: general LMA and standard monitoring Results Review: All pre-operative results and documents have been reviewed as part of the pre-operative evaluation. Informed Consent: The patient's anesthetic plan and its attendant risks and benefits were discussed with the patient/family/POA. Questions were solicite
[2022-09-09] VITALS (8 sets, daily range): BP systolic 118–141; BP diastolic 69–88; PULSE 63–95; RESP 10–16; TEMP 36.3–36.6; O2SAT 95–100
--- NOTE | 2022-09-09 06:30 | WPDHPUPDATE1 ---
History and Physical Update Update Date/Time: 09/09/22 06:30 History and Physical has been reviewed, including an updated exam of the patient. There are NO changes in the patient's condition. Risks, benefits, and alternatives have been discussed and questions answered. Patient agrees to proceed with procedure.
[2022-09-09] MEDS: LACTATED RINGERS 1,000 ML 30 ML IV CONT ×3 (12:02→15:06)
--- NOTE | 2022-09-09 12:22 | P.PNAN_ITS ---
Anes - Eval Final PreProcedure Day of Procedure 09/09/22 12:22 Patient weight: normal Heart: regular rate and rhythm Lungs: clear to auscultation Airway: Mallampati scale class II Neurological: alert and oriented Last oral intake: >/= 8 hours ASA classification: III Emergent: no Anesthetic plan: proceed Anesthesia type and monitoring: general LMA and standard monitoring Results Review: All pre-operative results and documents have been reviewed as part of the pre- operative evaluation. Informed Consent: The patient's anesthetic plan and its attendant risks and benefits were discussed with the patient/family/POA. Questions were solicited and answers provided to the satisfaction of the patient/family/POA.
[2022-09-09] MEDS: ceFAZolin 2 GM/D5W 50 ML 2 GM/50 ML BAG IVPB (13:05)
--- NOTE | 2022-09-09 14:39 | P.OP_ITS ---
Procedure Note - Detailed Date of Procedure 09/09/22 Pre-op Diagnosis Urethral stricture, bladder stones Post-op Diagnosis Same Procedure Performed TUIP, later lithotripsy/extraction bladder stones Surgeon Cale Parker MD Anesthesia General Description of Procedure Patient is brought to the operative suite was prepped draped in routine sterile fashion while in dorsal lithotomy position. This is done after the uneventful induction of a general LMA anesthetic. Cystoscopy is undertaken with a 19 F rigid cystoscope. He had minimal prostatic hyperplasia with a somewhat high median bar. There were no urethral strictures. His bladder does demonstrate 2 proximally 3 cm stones. There was no intravesical neoplasm. As per my discussion with the patient immediately preoperatively we did opt to do a gentle transurethral incision of the prostate, in the absence of urethral strictures. Using a Lai knife and incised at the 6 o'clock position from the bladder neck to the verumontanum. This incision which was carried down approximately 1- 2 cm. I then turned our attention to laser lithotripsy of his bladder stones. Using a 910 micron fiber I fractured the stones into small pieces which could be evacuated with an [employer] evacuator. Placed an 18 F urethral catheter drainage. This the urethra scope was removed the patient was taken to recovery room good condition. Drains Yes Packing No Pathology Yes Complications No immediate complications Condition Stable
[2022-09-09] MEDS: fentaNYL CITRATE INJ (*CRX) 100 MCG/2 ML VIAL 25 MCG IV PUSH ×4 (14:43→15:05)
--- NOTE | 2022-09-09 14:50 | SUR.PHASEI ---
dr rangel at bedside and is aware that pt urine is red and cloudy but still flowing. no new orders continue to monitor. no clots noted
--- NOTE | 2022-09-09 14:58 | SUR.PHASEI ---
dr rangel irrigated pt henderson and red urine and some string blood clots came out.
[2022-09-09] MEDS: oxyCODONE HCL (*CRX) 5 MG TAB IR PO (16:00)
== END 2022-09-09 16:27 | disposition home or self-care (01) ==
PROVIDERS: PCP Family Medicine; Visit Provider Urology
PROC: 0T7D8ZZ Dilation of Urethra, Via Natural or Artificial Opening Endoscopic (ICD-10-PCS; CPT 52281; principal; 2022-09-09 13:30)
DX: N21.0 Calculus in bladder (principal); N40.1 Benign prostatic hyperplasia with lower urinary tract symptoms; R33.8 Other retention of urine; R39.198 Other difficulties with micturition; J44.9 Chronic obstructive pulmonary disease, unspecified; E78.2 Mixed hyperlipidemia; G47.33 Obstructive sleep apnea (adult) (pediatric); F41.9 Anxiety disorder, unspecified; F32.A Depression, unspecified; Z79.51 Long term (current) use of inhaled steroids
CPT/HCPCS: 52318; 52450; 82365; 88300; A9270; J0690; J1100; J2250; J2405; J2704; J3010; J7120

== ENCOUNTER 2022-09-19 16:25 | Emergency (ER) | payer OTHER, SELFPAY ==
[2022-09-19 16:44] VITALS: BP 170/98; PULSE 97; RESP 18; TEMP 36.8; O2SAT 100
--- NOTE | 2022-09-19 17:05 | ED.GENADULT ---
HPI - General Adult General Chief complaint: Urogenital-Male Stated complaint: NEED A CATHETER PUT IN Time Seen by Provider: 09/19/22 16:52 Source: RN notes reviewed History of Present Illness HPI narrative: Patient presents to emergency room from home for urinary retention. Patient states that he had a procedure done by Dr. Parker on 119 for removal of bladder stones and a TURP states that since that time has been having to self cath and has been self cathing 3-4 times a day. states that he has been unable to catheterize himself since last night and is not able to urinate this evening having lower abdominal pressure and distention he denies any fevers or chills chest pain or shortness of breath Related Data Home Medications Medication Instructions Recorded Confirmed albuterol sulfate 90 mcg/actuation 2 puff inhalation Q4H PRN 09/14/19 09/09/22 aerosol inhaler (ProAir HFA) Shortness Of Breath alprazolam 0.25 mg tablet 0.25 mg PO DAILY PRN Anxiety 09/14/19 09/09/22 tamsulosin 0.4 mg capsule 0.4 mg PO DAILY 09/14/19 09/09/22 garlic 2 mg PO BID 05/06/20 09/09/22 multivitamin 1 tablet PO DAILY 05/06/20 09/09/22 fluticasone 250 mcg-salmeterol 50 1 inh inhalation BID 09/03/22 09/09/22 mcg/dose blistr powdr for inhalation (Advair Diskus) Allergies Allergy/AdvReac Type Severity Reaction Status Date / Time sulfamethoxazole Allergy Severe HIVES Verified 09/19/22 17:28 trimethoprim Allergy Severe HIVES Verified 09/19/22 17:28 sulfite Allergy Mild Skin Verified 09/19/22 17:28 Reaction Penicillins Allergy Unknown UNKNOWN Verified 09/19/22 17:28 REACTION Sulfa (Sulfonamide Allergy Unknown Rash Verified 09/19/22 17:28 Antibiotics) aspirin AdvReac Mild Gastrointestinal Verified 09/19/22 17:28 Upset ibuprofen AdvReac Mild Gastrointestinal Verified 09/19/22 17:28 Upset NAPROXEN SODIUM AdvReac Mild Gastrointestinal Uncoded 09/19/22 17:28 Upset Review of Systems Review of Systems: Gen.: Denies fevers or chills ENT: Denies congestion Respiratory: Denies shortness of breath or cough CV: Denies chest pain or palpitations GI: Reports lower abdominal pain, denies nausea vomiting diarrhea HPI Musculoskeletal: Denies back pain or muscle pain Neuro: Denies numbness, tingling, weakness or focal weakness Skin: Denies rash Except as documented, all other systems reviewed and negative [facility] Past Medical History Medical History Anxiety Asthma Calculus of kidney Colon polyp COPD (chronic obstructive pulmonary disease) COVID-19 Depression Enlarged prostate with lower urinary tract symptoms (LUTS) Mixed hyperlipidemia Obstructive sleep apnea do not use CPAP Overweight (BMI 25.0-29.9) Right rotator cuff tear Tubular adenoma of colon Surgical History Surgical History H/O transurethral resection of prostate History of endoscopic sinus surgery Family History Family History Mother Cerebrovascular accident Social History Social History Smoking status: Never smoker Alcohol intake: current Drinks per week: 2 Alcohol use details: 2-3/MONTH Substance use: never Substance use type: does not use Living arrangements: with family Spiritual care concerns: No Exam Narrative: APPEARANCE: No acute distress, nontoxic, resting in bed EYES: EOMI HEENT: Normocephalic, atraumatic, OMM RESPIRATORY: No respiratory distress Clear to auscultation bilaterally with no rhonchi wheezing or rales. CARDIOVASCULAR: Regular rate and rhythm without murmurs rubs or gallops. ABDOMINAL: Soft, tender palpation suprapubic region with distention present no rebound or guarding MUSCULOSKELETAl: Moves all extremities. No clubbing, cyanosis or edema. NEURO: Awake and alert. Following comman
[2022-09-19 17:31] VITALS: BP 119/71; PULSE 79; RESP 18; TEMP 36.6; O2SAT 97
[2022-09-19 17:34] LABS: Bilirubin Urine Negative (Negative); Blood Urine 3+ (Negative); Color Urine Yellow (Yellow); Glucose Urine UA Negative (Negative); Ketones Urine Negative (Negative); Leukocyte Esterase Ur 3+ LEU/UL (Negative); Nitrate Urine Positive (Negative); Protein Urine 2+ mg/dL (Negative); Specific Grav Ur 1.025 (1.001-1.035); Urobilinogen Urine 0.2 mg/dL (<2.0)
[2022-09-19 17:35] LABS: Add Urine Microscopic? YES; Appearance Urine Slightly Cloudy (Clear)
[2022-09-19 17:50] LABS: Bacteria Urine Trace /hpf; RBC Urine >75 /hpf (0-2); WBC Clumps Urine Present /HPF; WBC Urine >75 /hpf
[2022-09-19] MEDS: CIPROFLOXACIN 500 MG TAB PO (18:01)
== END 2022-09-19 18:18 | disposition home or self-care (01) ==
LOC: ANHED 18:00
PROVIDERS: Emergency Provider Emergency Medicine; PCP Family Medicine
DX: N40.1 Benign prostatic hyperplasia with lower urinary tract symptoms (principal); R33.8 Other retention of urine; N39.0 Urinary tract infection, site not specified; J44.9 Chronic obstructive pulmonary disease, unspecified; F41.9 Anxiety disorder, unspecified; F32.A Depression, unspecified; Z90.79 Acquired absence of other genital organ(s); Z86.16 Personal history of COVID-19; Z87.442 Personal history of urinary calculi; Z86.010 Personal history of colon polyps; G47.33 Obstructive sleep apnea (adult) (pediatric); E78.2 Mixed hyperlipidemia
CPT/HCPCS: 51703; 81001; 87077; 87086; 87186; 99283; A9270

== ENCOUNTER 2022-09-20 19:33 | Emergency (ER) | payer OTHER, SELFPAY ==
[2022-09-20 19:35] VITALS: BP 115/68; PULSE 99; RESP 18; TEMP 37.3; O2SAT 99
[2022-09-20] MEDS: SODIUM CHLORIDE 0.9% IV 1,000 ML 999 ML IV CONT (20:15)
--- NOTE | 2022-09-20 20:15 | PC.NURSE ---
pt states he had bladder and was here yesterday for catheter. states today he had a temp of 103 so surgeon told him to come in for eval because he may be septic. states denies any other complaints. took tylenol at 1830.
[2022-09-20 20:30] LABS: Basophils Absolute Auto 0.1 K/mm3 (0.0-0.1); Basophils Percent Auto 0.4 % (0.2-1.2); Eosinophils Percent Auto 0.3 % (0-4.4); Hematocrit 43.9 % (42.0-52.0); Hemoglobin 14.6 g/dL (14.0-18.0); Immature Granulocyte Absolute 0.06 K/mm3 (0.00-0.031); Immature Granulocyte Percent A 0.5 % (0-0.5); Lymphocytes Absolute Auto 1.03 K/mm3 (0.9-3.2); Lymphocytes Percent Auto 8.3 % (18.3-44.2); Mean Corpuscular HGB Conc 33.3 g/dl (32-36); Mean Corpuscular Hemoglobin 31.1 pg (26-34); Mean Corpuscular Volume 93.6 fl (80-100); Mean Platelet Volume 9.2 fl (7.4-10.4); Monocytes Absolute Auto 0.9 K/mm3 (0.1-0.6); Monocytes Percent Auto 7.2 % (2.6-8.5); Neutrophils Absolute Auto 10.4 K/mm3 (1.3-6.7); Neutrophils Percent Auto 83.3 % (45.5-73.1); Platelet Count Result 216 k/mm3 (150-375); Red Blood Count 4.69 M/mm3 (4.6-6.20); Red Cell Distribution Width 13.2 % (11.5-14.5); White Blood Count 12.4 K/mm3 (4.5-10.0)
--- NOTE | 2022-09-20 20:35 | ED.GENADULT ---
HPI - General Adult General Chief complaint: Fever Stated complaint: [id number] for sepsis workup Time Seen by Provider: 09/20/22 19:43 History of Present Illness HPI narrative: 57-year-old male presents to the emergency room for evaluation of fever. Patient states he was seen here yesterday for urinary retention. Patient recently had multiple bladder stones in the removed and a TURP by Dr. Parker on 09/09. Stated he was having difficulty catheterizing himself yesterday which is what brought him into the emergency room. States today he developed a fever of 103.0 taken by a mercury thermometer under the armpit. Patient took a gram of Tylenol 2 hours prior to arrival. Reported having body aches and chills. Denies any abdominal pain lower back pain. Denies sinus congestion, postnasal drip, cough or shortness of breath. Related Data Home Medications Medication Instructions Recorded Confirmed albuterol sulfate 90 mcg/actuation 2 puff inhalation Q4H PRN 09/14/19 09/09/22 aerosol inhaler (ProAir HFA) Shortness Of Breath alprazolam 0.25 mg tablet 0.25 mg PO DAILY PRN Anxiety 09/14/19 09/09/22 tamsulosin 0.4 mg capsule 0.4 mg PO DAILY 09/14/19 09/09/22 garlic 2 mg PO BID 05/06/20 09/09/22 multivitamin 1 tablet PO DAILY 05/06/20 09/09/22 fluticasone 250 mcg-salmeterol 50 1 inh inhalation BID 09/03/22 09/09/22 mcg/dose blistr powdr for inhalation (Advair Diskus) Allergies Allergy/AdvReac Type Severity Reaction Status Date / Time sulfamethoxazole Allergy Severe HIVES Verified 09/19/22 17:28 trimethoprim Allergy Severe HIVES Verified 09/19/22 17:28 sulfite Allergy Mild Skin Verified 09/19/22 17:28 Reaction Penicillins Allergy Unknown UNKNOWN Verified 09/19/22 17:28 REACTION Sulfa (Sulfonamide Allergy Unknown Rash Verified 09/19/22 17:28 Antibiotics) aspirin AdvReac Mild Gastrointestinal Verified 09/19/22 17:28 Upset ibuprofen AdvReac Mild Gastrointestinal Verified 09/19/22 17:28 Upset NAPROXEN SODIUM AdvReac Mild Gastrointestinal Uncoded 09/19/22 17:28 Upset Review of Systems Review of Systems: CONSTITUTIONAL: Reports fever EYES: Denies visual changes, redness, or discharge. ENT: Denies rhinorrhea, congestion, sore throat, or otalgia. CARDIOVASCULAR: Denies chest pain, palpitations, or edema. RESPIRATORY: Denies cough or dyspnea. GASTROINTESTINAL: Denies abdominal pain, nausea, vomiting, or diarrhea. GENITOURINARY: Denies dysuria or hematuria. SKIN: Denies rash or itching. MUSCULOSKELETAL: Denies back pain, joint pain, or myalgia. NEUROLOGIC: Denies headache, numbness, dizziness, or weakness. PSYCHIATRIC: Denies anxiety or depression. [facility] Past Medical History Medical History Anxiety Asthma Calculus of kidney Colon polyp COPD (chronic obstructive pulmonary disease) COVID-19 Depression Enlarged prostate with lower urinary tract symptoms (LUTS) Mixed hyperlipidemia Obstructive sleep apnea do not use CPAP Overweight (BMI 25.0-29.9) Right rotator cuff tear Tubular adenoma of colon Surgical History Surgical History H/O transurethral resection of prostate History of endoscopic sinus surgery Family History Family History Mother Cerebrovascular accident Social History Social History Smoking status: Never smoker Alcohol intake: current Drinks per week: 2 Alcohol use details: 2-3/MONTH Substance use: never Substance use type: does not use Living arrangements: with family Spiritual care concerns: No Exam Narrative: GENERAL: Well-appearing, well-nourished, no physical limitations, and in no acute distress. HEAD: Normocephalic, atraumatic. EYES: Conjunctivae normal, PERRLA and EOMI. CHEST: Clear to auscultation. No respiratory distress. No
[2022-09-20 20:41] LABS: Lactic Acid Reflex 1.6 mmol/L (0.7-2.0)
[2022-09-20 20:42] LABS: Alanine Aminotransferase 26 U/L (6-50); Albumin Level 4.3 g/dL (3.5-5.1); Alkaline Phosphatase 75 U/L (38-126); Anion Gap 10 mmol/L (8-16); Aspartate Amino Transferase 29 U/L (17-59); Bilirubin,Total 0.8 mg/dL (0.2-1.3); Blood Urea Nitrogen 19 mg/dL (9-20); Calcium 8.7 mg/dL (8.4-10.2); Carbon Dioxide 24 mmol/L (22-30); Chloride 103 mmol/L (98-107); Estimated CRCL calculation 57 ml/min; Estimated Glomerular Filt Rate > 60; Glucose 121 mg/dL (65-110); Potassium 3.7 mmol/L (3.4-5.0); Sodium 137 mmol/L (137-145)
[2022-09-20 21:39] LABS: Appearance Urine Slightly Cloudy (Clear); Bilirubin Urine Negative (Negative); Blood Urine 2+ (Negative); Color Urine Light Yellow (Yellow); Glucose Urine UA Negative (Negative); Ketones Urine Negative (Negative); Leukocyte Esterase Ur 2+ LEU/UL (Negative); Nitrate Urine Negative (Negative); Protein Urine Negative (Negative); Urobilinogen Urine 0.2 mg/dL (<2.0)
[2022-09-20 21:42] LABS: Amorphous Sediment Urine Few; Bacteria Urine Trace /hpf; Mucus Urine Rare /lpf; Squamous Epithelial Cell Urine Rare /hpf (Few); WBC Urine 51-75 /hpf
[2022-09-20 21:47] LABS: Add Urine Microscopic? YES
[2022-09-20 21:57] VITALS: BP 129/64; PULSE 74; RESP 16; O2SAT 97
== END 2022-09-20 22:02 | disposition home or self-care (01) ==
PROVIDERS: Emergency Provider Nurse Practitioner Family; PCP Family Medicine
DX: N39.0 Urinary tract infection, site not specified (principal); R50.9 Fever, unspecified; J44.9 Chronic obstructive pulmonary disease, unspecified; N40.1 Benign prostatic hyperplasia with lower urinary tract symptoms; E78.2 Mixed hyperlipidemia; G47.33 Obstructive sleep apnea (adult) (pediatric); F32.A Depression, unspecified; F41.9 Anxiety disorder, unspecified; E66.3 Overweight; Z68.29 Body mass index [BMI] 29.0-29.9, adult; Z86.010 Personal history of colon polyps; Z86.16 Personal history of COVID-19; Z87.442 Personal history of urinary calculi; Z90.79 Acquired absence of other genital organ(s)
CPT/HCPCS: 36415; 80053; 81001; 83605; 85025; 87086; 96360; 99283; J7030

== ENCOUNTER 2022-10-08 14:53 | Emergency (ER) | payer OTHER, SELFPAY ==
[2022-10-08] VITALS (14 sets, daily range): BP systolic 112–140; BP diastolic 71–83; PULSE 88–104; RESP 16–18; TEMP 37–37.4; O2SAT 94–97
--- NOTE | 2022-10-08 17:41 | ED.MALEGU ---
HPI - Male Genitourinary General Chief complaint: Urogenital-Male Stated complaint: urogenital Time Seen by Provider: 10/08/22 17:17 History of Present Illness HPI Narrative: Patient is a 57-year-old male presenting with urinary retention. Patient states that he has had numerous procedures with Dr. More for bladder stones and enlarged prostate. States that he was recently diagnosed with a UTI several weeks ago and he required a Santos catheter. States that it was able to be removed but unfortunately for the last day he has not been able to urinate spontaneously. States that he straight caths himself before bed each night and he was able to straight cath himself earlier today to relieve the pressure. States that he maybe had some dysuria earlier. Denies fevers, chest pain, shortness of breath, cough, abdominal pain, vomiting, diarrhea, leg swelling. States that he called Dr. Parker' office earlier today and there was no one to see him so he was advised to come to the ER. Related Data Home Medications Medication Instructions Recorded Confirmed albuterol sulfate 90 mcg/actuation 2 puff inhalation Q4H PRN 09/14/19 09/09/22 aerosol inhaler (ProAir HFA) Shortness Of Breath alprazolam 0.25 mg tablet 0.25 mg PO DAILY PRN Anxiety 09/14/19 09/09/22 tamsulosin 0.4 mg capsule 0.4 mg PO DAILY 09/14/19 09/09/22 garlic 2 mg PO BID 05/06/20 09/09/22 multivitamin 1 tablet PO DAILY 05/06/20 09/09/22 fluticasone 250 mcg-salmeterol 50 1 inh inhalation BID 09/03/22 09/09/22 mcg/dose blistr powdr for inhalation (Advair Diskus) Allergies Allergy/AdvReac Type Severity Reaction Status Date / Time sulfamethoxazole Allergy Severe HIVES Verified 09/19/22 17:28 trimethoprim Allergy Severe HIVES Verified 09/19/22 17:28 sulfite Allergy Mild Skin Verified 09/19/22 17:28 Reaction Penicillins Allergy Unknown UNKNOWN Verified 09/19/22 17:28 REACTION Sulfa (Sulfonamide Allergy Unknown Rash Verified 09/19/22 17:28 Antibiotics) aspirin AdvReac Mild Gastrointestinal Verified 09/19/22 17:28 Upset ibuprofen AdvReac Mild Gastrointestinal Verified 09/19/22 17:28 Upset NAPROXEN SODIUM AdvReac Mild Gastrointestinal Uncoded 09/19/22 17:28 Upset Review of Systems Review of Systems: All systems reviewed & are unremarkable except as noted in HPI and below PMFSH Past Medical History Medical History Anxiety Asthma Calculus of kidney Colon polyp COPD (chronic obstructive pulmonary disease) COVID-19 Depression Enlarged prostate with lower urinary tract symptoms (LUTS) Mixed hyperlipidemia Obstructive sleep apnea do not use CPAP Overweight (BMI 25.0-29.9) Right rotator cuff tear Tubular adenoma of colon Surgical History Surgical History H/O transurethral resection of prostate History of endoscopic sinus surgery Family History Family History Mother Cerebrovascular accident Social History Social History Smoking status: Never smoker Alcohol intake: current Drinks per week: 2 Alcohol use details: 2-3/MONTH Substance use: never Substance use type: does not use Living arrangements: with family Spiritual care concerns: No Exam Narrative: GENERAL: Well-appearing, well-nourished, and in no acute distress. HEAD: Normocephalic, atraumatic. EYES: PERRLA and EOMI. ENT: Nares clear, no rhinorrhea or epistaxis. Mucous membranes moist. NECK: Supple. CHEST: Clear to auscultation. No respiratory distress. HEART: Regular rate and rhythm. Normal peripheral pulses. ABDOMEN: Soft, nontender, nondistended EXTREMITIES: Normal range of motion. No edema. SKIN: Warm, dry, no rash. NEURO: No focal deficits. Alert and oriented x3. PSYCH: Normal mood and affect. Course Vital Signs Vital
[2022-10-08 18:45] LABS: Appearance Urine Slightly Cloudy (Clear); Bilirubin Urine 1+ (Negative); Blood Urine 3+ (Negative); Color Urine Yellow (Yellow); Glucose Urine UA Negative (Negative); Ketones Urine Trace mg/dL (Negative); Leukocyte Esterase Ur 1+ LEU/UL (Negative); Nitrate Urine Positive (Negative); Protein Urine 3+ mg/dL (Negative); Specific Grav Ur >= 1.030 (1.001-1.035); Urobilinogen Urine 0.2 mg/dL (<2.0); pH Urine 5.5 (5.0-9.0)
[2022-10-08 18:52] LABS: Add Urine Microscopic? YES; Bacteria Urine 1+ /hpf; Mucus Urine Few /lpf; RBC Urine 21-50 /hpf (0-2); WBC Clumps Urine Present /HPF; WBC Urine >75 /hpf
--- NOTE | 2022-10-08 19:17 | PC.NURSE ---
First encounter w/ pt. Pt resting comfortably in bed, updated pt on plan of care, NAD, respirations even and unlabored, all needs addressed, no question at this time.
[2022-10-08] MEDS: CEPHALEXIN 500 MG CAPSULE PO (19:46)
== END 2022-10-08 20:38 | disposition home or self-care (01) ==
PROVIDERS: Emergency Provider Emergency Medicine; PCP Family Medicine
DX: N39.0 Urinary tract infection, site not specified (principal); N40.1 Benign prostatic hyperplasia with lower urinary tract symptoms; R33.8 Other retention of urine; J45.909 Unspecified asthma, uncomplicated; E78.2 Mixed hyperlipidemia; G47.33 Obstructive sleep apnea (adult) (pediatric); E66.3 Overweight; Z68.28 Body mass index [BMI] 28.0-28.9, adult; F41.9 Anxiety disorder, unspecified; F32.A Depression, unspecified; Z86.16 Personal history of COVID-19; Z87.442 Personal history of urinary calculi; Z86.010 Personal history of colon polyps; Z90.79 Acquired absence of other genital organ(s)
CPT/HCPCS: 51702; 81001; 87077; 87086; 87186; 99283; A9270

== ENCOUNTER 2022-11-05 16:26 | Observation (INO) | payer OTHER, SELFPAY ==
[2022-10-22 12:34] VITALS: BMI 28.0
--- NOTE | 2022-10-22 12:36 | PC.NURSE ---
Report to the Outpatient Waiting Room, entrance under the green pavilion located off [facility], at time 1000 on date 11/04/22. Planned Procedure Time: 1200. Time changes happen often and if your time is changed the preop area will call you the afternoon before. - You and your visitor will be asked to self-screen and do not enter if you have any COVID symptoms. - Only one visitor is requested with a max of two and NO children visitors are allowed at this time. - The patient visitor may be requested to leave or wait in car when not with patient due to distancing restrictions. - A mask is optional within the hospital at this time. Patients may have clear liquids (water, carbonated beverages, clear teas, apple juice) until 3 hours prior to surgery with a maximum of 20 ounces. - No food from midnight until time of surgery Take the following medications with a SIP of water the morning of surgery: INHALERS, CIPRO, SERTRALINE, XANAX IF NEEDED DO NOT STOP ANY OF YOUR OTHER PRESCRIPTION MEDICATIONS PRIOR TO SURGERY?EXCEPT THE FOLLOWING Medications to discontinue per physician: VITAMINS/SUPPLEMENTS Date to take last dose: 10/31/22 Please no make-up, nail puerto rican, hairspray, perfume, deodorant, or body powder the day of surgery. No jewelry (including any body piercings) or valuables the day of surgery, leave them at home. Please take a shower or bath the night before, or the morning of, surgery with an antibacterial soap. Wear comfortable, loose fitting clothing. - Jewelry must be removed prior to entering the operating room. Rings and piercings that are not removed may be cut off. - The hospital will not accept responsibility for valuables. - Please leave all valuables, including medications, at home the day of surgery. If you are going home after surgery, a licensed local combination truck driver must drive you home. - NO public transportation without another adult if you receive anesthesia. - We recommend that an adult stay with you for 24 hours following discharge. - We also recommend that you do not drive, make important decision, drink alcoholic beverages, or take any drugs that were not prescribed by your health care provider for at least 24 hours after your discharge time. Follow any additional instructions given to you from your surgeon. If you or anyone in your household have experienced Covid symptoms in the past week, please notify your surgeon or the nurse liaison at the phone number below for possible testing. Telephone instructions given to YOSELYN - JUANITO LION and asked if any additional questions and then verbalized understanding. Patient advised to call surgeon office or pre surgery nurse liaison [phone] if any additional questions.
--- NOTE | 2022-10-27 07:40 | PM.IMHP ---
H&P: HPI History of Present Illness Date/Time: 10/27/22 07:40 Chief Complaint: Difficulty urinating Narrative: Patient with a long history of lower urinary tract symptoms. In the past this is been attributable to strictures and bladder stones. Despite recent bladder stone extraction with urethral dilatation, however, he continues to have marked obstructive voiding symptoms with episodes of urinary retention. Recent repeat urodynamics shows consistent bladder outlet obstruction with high-pressure detrusor contractions and very slow flow. After discussion of options he now elects for TURP. He is aware the risk including, but not limited to, adverse cardiopulmonary events, hematuria and persistent voiding symptoms. Review of Systems Cardiovascular: Cardiovascular: Denies chest pain, Denies lightheadedness, Denies palpitations and Denies dyspnea Respiratory: Respiratory: Denies dyspnea Gastrointestinal: Gastrointestinal: Denies diarrhea, Denies nausea and Denies vomiting Genitourinary: Genitourinary: Denies hematuria and Denies dysuria Endocrine: Endocrine: Denies palpitations PMFSH Past Medical History Medical History Anxiety Asthma Calculus of kidney Colon polyp COPD (chronic obstructive pulmonary disease) COVID-19 Depression Enlarged prostate with lower urinary tract symptoms (LUTS) Mixed hyperlipidemia Obstructive sleep apnea do not use CPAP Overweight (BMI 25.0-29.9) Right rotator cuff tear Tubular adenoma of colon Surgical History Surgical History H/O transurethral resection of prostate History of endoscopic sinus surgery Family History Family History Mother Cerebrovascular accident Social History Social History Smoking status: Never smoker Alcohol intake: current Drinks per week: 2 Alcohol use details: 2-3/MONTH Substance use: never Substance use type: does not use Living arrangements: with family Spiritual care concerns: No Meds Home Medications and Allergies Home Medications Medication Instructions Recorded Confirmed Type albuterol sulfate 90 mcg/actuation 2 puff inhalation Q4H PRN 09/14/19 10/22/22 History aerosol inhaler (ProAir HFA) Shortness Of Breath alprazolam 0.25 mg tablet 0.25 mg PO DAILY PRN Anxiety 09/14/19 10/22/22 History tamsulosin 0.4 mg capsule 0.4 mg PO DAILY 09/14/19 10/22/22 History garlic 2 mg PO BID 05/06/20 10/22/22 History multivitamin 1 tablet PO DAILY 05/06/20 10/22/22 History sertraline 50 mg tablet See Rx Instructions .Route 06/11/22 10/22/22 Rx .COMPLEX #90 tabs meloxicam 15 mg tablet 15 mg PO DAILY #90 tabs 07/29/22 10/22/22 Rx montelukast 10 mg tablet See Rx Instructions .Route 07/29/22 10/22/22 Rx .COMPLEX #90 tabs fluticasone 250 mcg-salmeterol 50 1 inh inhalation BID 09/03/22 10/22/22 History mcg/dose blistr powdr for inhalation (Advair Diskus) ciprofloxacin HCl 500 mg tablet 500 mg PO Q12H #14 tabs 09/19/22 10/22/22 Rx (Cipro) Allergies Allergy/AdvReac Type Severity Reaction Status Date / Time sulfamethoxazole Allergy Severe HIVES Verified 10/22/22 12:31 trimethoprim Allergy Severe HIVES Verified 10/22/22 12:31 sulfite Allergy Mild Skin Verified 10/22/22 12:31 Reaction Penicillins Allergy Unknown UNKNOWN Verified 10/22/22 12:31 REACTION Sulfa (Sulfonamide Allergy Unknown Rash Verified 10/22/22 12:31 Antibiotics) aspirin AdvReac Mild Gastrointestinal Verified 10/22/22 12:31 Upset ibuprofen AdvReac Mild Gastrointestinal Verified 10/22/22 12:31 Upset NAPROXEN SODIUM AdvReac Mild Gastrointestinal Uncoded 10/22/22 12:31 Upset Exam Const: General: no acute distress Resp: Effort & Inspection: normal respiratory effort GI: Inspection: non-distended GI
[2022-11-04] VITALS (20 sets, daily range): BP systolic 90–132; BP diastolic 52–87; PULSE 54–94; RESP 13–20; TEMP 36.1–36.7; O2SAT 94–100
--- NOTE | 2022-11-04 06:40 | WPDHPUPDATE1 ---
History and Physical Update Update Date/Time: 11/04/22 06:40 History and Physical has been reviewed, including an updated exam of the patient. There are NO changes in the patient's condition. Risks, benefits, and alternatives have been discussed and questions answered. Patient agrees to proceed with procedure.
[2022-11-04] MEDS: LACTATED RINGERS 1,000 ML 30 ML IV CONT ×2 (10:00→11:47)
--- NOTE | 2022-11-04 10:39 | WPDANESEPPF ---
Anes - Initial Pre Proc Eval Procedure: Operation Date: 11/04/22 11:30 Proposed Procedures p Trans Urethral Resection Prostate - Cale Parker MD Date/Time: 11/04/22 10:39 Surgeon: Cale Parker MD Pre Op Diagnosis: Urine Retention bph Patient Data Age: 57 Gender: M Height: 1.73 m Weight: 83 kg Last Vital Signs Temp 36.7 C 11/04/22 10:25 Pulse 60 11/04/22 10:25 Resp 16 11/04/22 10:25 BP 129/75 11/04/22 10:25 Pulse Ox 98 11/04/22 10:25 O2 Del Method Room Air 11/04/22 10:25 Allergies Allergy/AdvReac Type Severity Reaction Status Date / Time sulfamethoxazole Allergy Severe HIVES Verified 11/04/22 10:23 trimethoprim Allergy Severe HIVES Verified 11/04/22 10:23 sulfite Allergy Mild Skin Verified 11/04/22 10:23 Reaction Penicillins Allergy Unknown UNKNOWN Verified 11/04/22 10:23 REACTION Sulfa (Sulfonamide Allergy Unknown Rash Verified 11/04/22 10:23 Antibiotics) aspirin AdvReac Mild Gastrointestinal Verified 11/04/22 10:23 Upset ibuprofen AdvReac Mild Gastrointestinal Verified 11/04/22 10:23 Upset NAPROXEN SODIUM AdvReac Mild Gastrointestinal Uncoded 11/04/22 10:23 Upset Home Medications Medication Instructions Recorded Confirmed Type albuterol sulfate 90 mcg/actuation 2 puff inhalation Q4H PRN 09/14/19 10/22/22 History aerosol inhaler (ProAir HFA) Shortness Of Breath tamsulosin 0.4 mg capsule 0.4 mg PO DAILY 09/14/19 10/22/22 History garlic 2 mg PO BID 05/06/20 10/22/22 History multivitamin 1 tablet PO DAILY 05/06/20 10/22/22 History sertraline 50 mg tablet See Rx Instructions .Route 06/11/22 10/22/22 Rx .COMPLEX #90 tabs meloxicam 15 mg tablet 15 mg PO DAILY #90 tabs 07/29/22 10/22/22 Rx montelukast 10 mg tablet See Rx Instructions .Route 07/29/22 10/22/22 Rx .COMPLEX #90 tabs fluticasone 250 mcg-salmeterol 50 1 inh inhalation BID 09/03/22 10/22/22 History mcg/dose blistr powdr for inhalation (Advair Diskus) ciprofloxacin HCl 500 mg tablet 500 mg PO Q12H #14 tabs 09/19/22 10/22/22 Rx (Cipro) alprazolam 0.25 mg tablet 0.25 mg PO DAILY PRN Anxiety #30 11/01/22 Rx tabs Patient hx anesthesia problems: none Family hx anesthesia problems: none Results Review: All pre-operative results and documents have been reviewed as part of the pre-operative evaluation. [facility] Past Medical History Medical History Anxiety Asthma Calculus of kidney Colon polyp COPD (chronic obstructive pulmonary disease) COVID-19 Depression Enlarged prostate with lower urinary tract symptoms (LUTS) Mixed hyperlipidemia Obstructive sleep apnea do not use CPAP Overweight (BMI 25.0-29.9) Right rotator cuff tear Tubular adenoma of colon Surgical History Surgical History H/O transurethral resection of prostate History of endoscopic sinus surgery Family History Family History Mother Cerebrovascular accident Social History Social History Smoking status: Never smoker Alcohol intake: current Drinks per week: 2 Alcohol use details: 2-3/MONTH Substance use: never Substance use type: does not use Living arrangements: with family Spiritual care concerns: No Anes - Eval Final PreProcedure Day of Procedure 11/04/22 10:39 Patient weight: overweight Heart: regular rate and rhythm Lungs: clear to auscultation Airway: Mallampati scale class II Neurological: alert and oriented Last oral intake: >/= 8 hours ASA classification: III Emergent: no Anesthetic plan: proceed Anesthesia type and monitoring: general LMA and standard monitoring Results Review: All pre-operative results and documents have been reviewed as part of the pre-operative evaluation. Informed Consent: The patient's anesth
[2022-11-04] MEDS: ceFAZolin 2 GM/D5W 50 ML 2 GM/50 ML BAG IVPB (10:49)
[2022-11-04] MEDS: LIDOCAINE HCL 2% GEL UROJET 10 ML PKG MUCOUS MEM (11:01)
--- NOTE | 2022-11-04 11:43 | SUR.OPER ---
Specimen sent with MADISON Yao and received in pathology by
--- NOTE | 2022-11-04 11:49 | W.PM.PROC2 ---
Procedure Note - Detailed Date of Procedure 11/04/22 Pre-op Diagnosis BPH Post-op Diagnosis Same Procedure Performed TURP Surgeon Cale Parker MD Anesthesia General Description of Procedure The patient was brought to the operative suite where he is prepped and draped in routine sterile fashion while in the dorsal lithotomy position after the uneventful induction of a general LMA anesthetic. A 24 Angolan resectoscope sheath was placed into his bladder. He had no urethral strictures. The patient had bilobar hyperplasia with no median lobe. The bladder itself was endoscopically normal, showing no mucosal hyperemia, intravesical neoplasm or foreign bodies. There was a single, orthotopic ureteral orifice bilaterally. These orifices were identified and preserved throughout the remainder of the procedure. The left lateral lobe was then resected starting at the 6 o'clock position, working counter clockwise to the 12 o'clock position. Resection was carried out from the bladder neck to the verumontanum until the capsular fibers of the prostate were identified. The right lateral lobe was resected in a similar fashion starting at the 6 o'clock position working clockwise to the 12 o'clock position and carried out until the capsular fibers of the prostate were identified. Apical tissue was then circumferentially resected. All chips were evacuated from the bladder using an [facility] evacuator. Hemostasis was obtained with electric cautery. The ureteral orifices were again inspected and found to be without injury. Estimated blood loss throughout this procedure was 50cc. The patient was taken to recovery room having tolerated this well. Drains Yes Packing No Pathology Yes Complications No immediate complications Condition Stable Disposition PACU
[2022-11-04] MEDS: fentaNYL CITRATE INJ (*CRX) 100 MCG/2 ML VIAL 25 MCG IV PUSH ×6 (12:13→14:16)
--- NOTE | 2022-11-04 12:40 | SUR.PHASEI ---
Patient meets PACU discharge criteria, unit bed unavailable at this time. Patient placed in extended recovery status at 1240.
--- NOTE | 2022-11-04 14:42 | ADMGEN ---
This patient, Mil Irvin, was admitted to Medical Room 251-01. Patient/family oriented to hospital policies and general routines including ID bracelet, bed and alarms, visiting hours, pain management, procedures, bathroom and other care routines, personal items, smoking policy, room service/diet, and visiting hours. Information on how to activate the Rapid Response Team has been discussed. Patient/Family are encouraged to report perceived risks to care and to ask questions if they do not understand what they are told or what they should do.
[2022-11-04] MEDS: HYDROcodone/acetaminophen (*CRX) 5-325 MG TABLET 1 TAB PO (15:45)
[2022-11-04] MEDS: DOCUSATE SODIUM 100 MG CAPSULE PO (16:15)
[2022-11-04] MEDS: ceFAZolin 1 GM/NS 50 ML 1 GM/50 ML BAG IVPB (17:43)
[2022-11-04] MEDS: WATER FOR IRRIGATION, STERILE 1,000 ML BOTTLE 1000 ML (19:05)
--- NOTE | 2022-11-04 22:30 | PCRCNOTE ---
Window of time for administration has passed. See next scheduled administration.
[2022-11-04] MEDS: SODIUM CHLORIDE 0.9% IV 1,000 ML 999 ML IV CONT (23:30)
--- NOTE | 2022-11-04 23:36 | PC.NURSE ---
Dr Parker notified of changes in patient vitals and updated on CBI status. Pt called wtih c/o dizziness and feeling flushed while speaking provider, pt symptoms were relayed to provider at that time. Order received for H&H and IV fluids w/ 500ml bolus, continue to monitor vitals and patient condition closely.
[2022-11-04 23:47] LABS: Hematocrit 37.1 % (42.0-52.0); Hemoglobin 12.2 g/dL (14.0-18.0)
[2022-11-05] VITALS (7 sets, daily range): BP systolic 93–116; BP diastolic 48–60; PULSE 62–83; RESP 14–18; TEMP 36.3–37; O2SAT 95–97
[2022-11-05] MEDS: ceFAZolin 1 GM/NS 50 ML 1 GM/50 ML BAG IVPB (02:57)
[2022-11-05] MEDS: SODIUM CHLORIDE 0.9% IV 1,000 ML 125 ML IV CONT ×3 (03:04→20:24)
[2022-11-05 06:01] LABS: Hematocrit 32.6 % (42.0-52.0); Hemoglobin 10.6 g/dL (14.0-18.0)
[2022-11-05 06:18] LABS: Anion Gap 2 mmol/L (8-16); Blood Urea Nitrogen 20 mg/dL (9-20); Carbon Dioxide 27 mmol/L (22-30); Chloride 103 mmol/L (98-107); Estimated CRCL calculation 68 ml/min; Estimated Glomerular Filt Rate > 60; Glucose 108 mg/dL (65-110); Potassium 4.4 mmol/L (3.4-5.0); Sodium 132 mmol/L (137-145)
--- NOTE | 2022-11-05 07:37 | WPDUROPN2 ---
Progress Note: A&P Assessment and Plan (1) Enlarged prostate with lower urinary tract symptoms (LUTS): Code(s): N40.1 - Benign prostatic hyperplasia with lower urinary tract symptoms Status: Acute Assessment and Plan: Urine bloody overnight but without clots or retention. Urine now clear on slow CBI. Transient mild drop in BP without tachycardia - no clinically significant. Slight drop H/H may be partially dilutional. Will stop CBI. Possible voiding trial later today if urine remains clear. Subjective Subjective Date/Time Seen: 11/05/22 07:37 Comfortable, no complaints Urine bloody overnight - clear this morning Review of Systems Cardiovascular: Cardiovascular: Denies chest pain, Denies lightheadedness, Denies palpitations and Denies dyspnea Respiratory: Respiratory: Denies dyspnea Gastrointestinal: Gastrointestinal: Denies diarrhea, Denies nausea and Denies vomiting Genitourinary: Genitourinary: Denies hematuria and Denies dysuria Endocrine: Endocrine: Denies palpitations Exam Const: General: no acute distress Resp: Effort & Inspection: normal respiratory effort GI: Inspection: non-distended GI Palp: No abdominal tenderness and No Guarding due to palpation present (GI) Auscultation: normal bowel sounds Objective Data Vital Signs Vital Signs: Vital Signs - 24 hr 11/04/22 10:25 11/04/22 11:47 11/04/22 12:00 Temperature 98.0 F 97.7 F Pulse Rate 60 84 75 Respiratory Rate 16 13 15 Blood Pressure 129/75 132/78 125/82 Pulse Oximetry 98 100 100 Oxygen Delivery Room Air Simple Face Mask Simple Face Mask Oxygen Flow Rate 8 8 11/04/22 12:15 11/04/22 12:20 11/04/22 12:30 Temperature 97.4 F L Pulse Rate 60 54 L 66 Respiratory Rate 15 15 14 Blood Pressure 125/75 130/73 122/75 Pulse Oximetry 100 100 96 Oxygen Delivery Simple Face Mask Simple Face Mask Room Air Oxygen Flow Rate 8 8 11/04/22 12:40 11/04/22 12:50 11/04/22 13:05 Temperature Pulse Rate 82 71 60 Respiratory Rate 14 18 16 Blood Pressure 116/66 119/87 112/70 Pulse Oximetry 96 95 94 Oxygen Delivery Room Air Room Air Room Air Oxygen Flow Rate 11/04/22 13:19 11/04/22 13:35 11/04/22 13:50 Temperature Pulse Rate 94 60 58 L Respiratory Rate 20 13 16 Blood Pressure 110/74 112/69 114/73 Pulse Oximetry 97 95 96 Oxygen Delivery Room Air Room Air Room Air Oxygen Flow Rate 11/04/22 14:05 11/04/22 14:46 11/04/22 14:30 Temperature 97.0 F L Pulse Rate 66 55 L Respiratory Rate 16 16 Blood Pressure 112/71 105/65 Pulse Oximetry 97 94 Oxygen Delivery Room Air Room Air Oxygen Flow Rate 11/04/22 14:45 11/04/22 15:15 11/04/22 16:15 Temperature 97.1 F L 97.1 F L 97.1 F L Pulse Rate 58 L 66 68 Respiratory Rate 16 18 18 Blood Pressure 112/72 110/71 104/64 Pulse Oximetry 95 98 96 Oxygen Delivery Oxygen Flow Rate 11/04/22 19:31 11/04/22 23:15 11/04/22 23:24 Temperature 97.9 F 97.8 F 97.4 F L Pulse Rate 68 80 Respiratory Rate 17 18 Blood Pressure 100/52 L 90/58 L Pulse Oximetry 96 95 Oxygen Delivery Oxygen Flow Rate 11/04/22 20:00 11/05/22 03:04 11/05/22 04:51 Temperature 97.4 F L Pulse Rate 62 Respiratory Rate 18 Blood Pressure 93/55 L 100/48 L Pulse Oximetry 95 Oxygen Delivery Room Air Oxygen Flow Rate Intake/Output Intake/Output: Intake & Output 11/02/22 11/03/22 11/04/22 11/05/22 23:59 23:59 23:59 23:59 Intake Total 1290 1050 Output Total [id number] 6900 Balance -75380 -9209 Meds/Results Medications: Active Medications Generic Name Dose Route Start Last Admin Trade Name Freq PRN Reason Stop Dose Admin Hydrocodone Bitart/Acetaminophen 1 tab 11/04/22 14:21 11/04/22 15:45 Hydrocodone/Acetaminophen (*Crx) 5-325 Mg Tablet PO 1 tab Q4H PRN Administration Pain Rated 1-6 Albuterol 2 puff 11/04/22 14:21 Albuterol Sulfate (*Sp) Aerosol 1 Puff INHALATION Q4H PRN Shortness Of Breath
[2022-11-05] MEDS: FLUTICASONE/SALMETEROL 115-21 MCG INHALER 1 PUFF 2 PUFF INHALATION ×2 (08:00→20:30)
[2022-11-05] MEDS: SERTRALINE HCL 50 MG TABLET BY MOUTH (08:31)
[2022-11-05] MEDS: CEPHALEXIN 500 MG CAPSULE PO ×4 (08:31→20:24)
[2022-11-05] MEDS: DOCUSATE SODIUM 100 MG CAPSULE PO ×2 (08:31→17:04)
[2022-11-05] MEDS: MELOXICAM 7.5 MG TABLET 15 MG PO (08:32)
--- NOTE | 2022-11-05 08:32 | PC.NURSE ---
Keith shut off CBI @ 0700, this RN resumed at 0830. PT c/o slight pressure and blood noted in tube. Not clotted off, draining pink-clear after CBI resumed. Will keep at slow rate and continue to monitor.
--- NOTE | 2022-11-05 13:38 | WPDANESPN ---
Anes - Prog Note Post-Op Date/Time: 11/05/22 13:38 Cardiovascular status: normal Respiratory status: normal Airway patency: baseline Mental status: baseline Post-Op hydration status: normal Vital Signs: Last Vital Signs Temp 98.6 F 11/05/22 11:00 Pulse 63 11/05/22 11:00 Resp 16 11/05/22 11:00 BP 102/50 L 11/05/22 11:00 Pulse Ox 96 11/05/22 11:00 O2 Del Method Room Air 11/05/22 08:00 O2 Flow Rate 8 11/04/22 12:20 Pain Score (VAS): 0/10 I/O: Intake & Output 11/04/22 11/05/22 11/05/22 23:59 07:59 15:59 Intake Total 540 1050 1240 Output Total 850 5350 Balance -310 -4300 1240 Laboratory Tests 11/05/22 05:33 11/05/22 05:33 11/04/22 11/05/22 11/05/22 23:28 05:33 05:33 Hgb 12.2 L 10.6 L Hct 37.1 L 32.6 L Sodium 132 L Potassium 4.4 Chloride 103 Carbon Dioxide 27 Anion Gap 2 L BUN 20 Creatinine 1.00 Estim Creat Clear Calc 68 Estimated GFR > 60 Glucose 108 Calcium 8.0 L Post-procedural complaints: none Patient Feedback: Patient satisfied with anesthetic care.
[2022-11-05] MEDS: MONTELUKAST SODIUM 10 MG TABLET BY MOUTH (20:23)
[2022-11-06 02:08] VITALS: BP 102/56; PULSE 60; RESP 14; TEMP 36.4; O2SAT 98
[2022-11-06 06:45] VITALS: BP 109/57; PULSE 60; RESP 14; TEMP 36.8; O2SAT 97
[2022-11-06] MEDS: DOCUSATE SODIUM 100 MG CAPSULE PO (08:25)
[2022-11-06] MEDS: CEPHALEXIN 500 MG CAPSULE PO ×2 (08:25→12:54)
[2022-11-06] MEDS: SERTRALINE HCL 50 MG TABLET BY MOUTH (08:25)
[2022-11-06] MEDS: MELOXICAM 7.5 MG TABLET 15 MG PO (08:25)
--- NOTE | 2022-11-06 10:49 | WPDUROPN2 ---
Progress Note: A&P Assessment and Plan (1) Enlarged prostate with lower urinary tract symptoms (LUTS): Code(s): N40.1 - Benign prostatic hyperplasia with lower urinary tract symptoms Status: Acute Assessment and Plan: Urine clear today, POD #2 s/p TURP Voiding trial this morning Subjective Subjective Date/Time Seen: 11/06/22 10:49 Comfortable, urine clear off CBI this morning Review of Systems Cardiovascular: Cardiovascular: Denies chest pain, Denies lightheadedness, Denies palpitations and Denies dyspnea Respiratory: Respiratory: Denies dyspnea Gastrointestinal: Gastrointestinal: Denies diarrhea, Denies nausea and Denies vomiting Genitourinary: Genitourinary: Denies hematuria and Denies dysuria Endocrine: Endocrine: Denies palpitations Exam Const: General: no acute distress Resp: Effort & Inspection: normal respiratory effort GI: Inspection: non-distended GI Palp: No abdominal tenderness and No Guarding due to palpation present (GI) Auscultation: normal bowel sounds Urinary Catheter: Urinary Catheter: patent and draining and urine clear Objective Data Vital Signs Vital Signs: Vital Signs - 24 hr 11/05/22 11:00 11/05/22 14:00 11/05/22 20:00 Temperature 98.6 F 98.1 F Pulse Rate 63 83 68 Respiratory Rate 16 14 16 Blood Pressure 102/50 L 98/58 L Pulse Oximetry 96 96 97 Oxygen Delivery Room Air 11/05/22 22:50 11/06/22 02:08 11/06/22 06:45 Temperature 98.4 F 97.6 F 98.2 F Pulse Rate 68 60 60 Respiratory Rate 16 14 14 Blood Pressure 116/60 102/56 L 109/57 L Pulse Oximetry 97 98 97 Oxygen Delivery Intake/Output Intake/Output: Intake & Output 11/03/22 11/04/22 11/05/22 11/06/22 23:59 23:59 23:59 23:59 Intake Total 1290 06392 440 Output Total 08731 [id number] 9800 [facility] -[id number] [phone] -[id number] Meds/Results Medications: Active Medications Generic Name Dose Route Start Last Admin Trade Name Freq PRN Reason Stop Dose Admin Hydrocodone Bitart/Acetaminophen 1 tab 11/04/22 14:21 11/04/22 15:45 Hydrocodone/Acetaminophen (*Crx) 5-325 Mg Tablet PO 1 tab Q4H PRN Administration Pain Rated 1-6 Albuterol 2 puff 11/04/22 14:21 Albuterol Sulfate (*Sp) Aerosol 1 Puff INHALATION Q4H PRN Shortness Of Breath Cephalexin HCl 500 mg 11/05/22 09:00 11/06/22 08:25 Cephalexin 500 Mg Capsule PO 500 mg QID DUANE Administration Docusate Sodium 100 mg 11/04/22 17:00 11/06/22 08:25 Docusate Sodium 100 Mg Capsule PO 100 mg BID DUANE Administration Hyoscyamine 0.125 mg 11/04/22 14:21 Hyoscyamine Sulfate 0.125 Mg Tablet SUBLINGUAL Q6H PRN Bladder Spasm Sodium Chloride 1,000 mls @ 125 mls/hr 11/04/22 23:25 11/05/22 20:24 Normal Saline Iv IV CONT 125 mls/hr .Q8H DUANE Administration Meloxicam 15 mg 11/05/22 09:00 11/06/22 08:25 Meloxicam 7.5 Mg Tablet PO 12/05/22 08:59 15 mg DAILY DUANE Administration Montelukast Sodium 10 mg 11/04/22 21:00 11/05/22 20:23 Montelukast Sodium 10 Mg Tablet BY MOUTH 10 mg HS [facility] Administration Morphine Sulfate 2 mg 11/04/22 14:21 Morphine Sulfate (*Crx) 2 Mg/Ml Inj IV PUSH Q2H PRN Pain Rated 7-10 Naloxone HCl 0.1 mg 11/04/22 14:21 Naloxone Hcl 0.4 Mg/Ml Vial IV PUSH Q2M PRN Opiate Reversal Ondansetron HCl 4 mg 11/04/22 14:21 Ondansetron Inj 4 Mg/2 Ml Vial IV PUSH Q12H PRN Nausea And Vomiting Fluticasone/Salmeterol 2 puff 11/04/22 20:00 11/05/22 20:30 Fluticasone/Salmeterol 115-21 Mcg Inhaler 1 Puff INHALATION 2 puff Q12HRT DUANE Administration Sertraline HCl 50 mg 11/05/22 09:00 11/06/22 08:25 Sertraline Hcl 50 Mg Tablet BY MOUTH 50 mg DAILY DUANE Administration
--- NOTE | 2022-11-06 12:18 | PM.DS ---
DS: Admitting Diagnosis Discharge Date 11/06/2022 Admitting Diagnosis BPH DS: Discharge Diagnosis Discharge Diagnosis (1) Enlarged prostate with lower urinary tract symptoms (LUTS): Code(s): N40.1 - Benign prostatic hyperplasia with lower urinary tract symptoms Status: Acute DS: Summary Hospital Course Hospital Course: This patient with longstanding prostatism refractory for medical management was admitted on the morning of his planned TURP. The procedure was undertaken on that same day in an uneventful fashion. His post-operative course was, likewise, uneventful. On the evening of the procedure he was tolerating a diet. On POD#1 his urine was slightly bloody on CBI so we opted to leave cathter another day. On POD #2 the urine remained clear and, therefore, the catheter was removed late morning. The patient was observed for several hours, until he demonstrated he could void effectively without significant hematuria. He was discharged with careful instruction on limiting physical activity x2 weeks and plans to f/ in 2-3 weeks. At discharge he was comfortable and tolerating a diet. Time Spent with Patient Time attestation: Total time spent providing and/or coordinating discharge services: DS: Data Data Completed and Pending Completed studies during hospitalization: Pending at discharge 11/04/22 11:18 Surgical [PTH] Routine Discharge Plan Discharge Attending physician on discharge: Cale Parker Discharging Clinician: Cale Parker Patient Disposition: Home, Self-Care Activity: other - see discharge instructions Diet: other - see discharge instructions Discharge Instructions: 1) Activity: No lifting/straining >15lbs. x2 weeks. 2) Diet: Resume normal pre-admission diet. 3) Follow-up: 2-3 weeks / call office for appointment ([phone]). Stand Alone Forms: General Discharge Instructions Follow-up/Referrals: Cale Parker MD [Physician] - Discharge Medications: New ciprofloxacin HCl 500 mg tablet 500 mg PO Q12H Qty: 6 0RF docusate sodium [Colace] 100 mg capsule 100 mg PO DAILY Qty: 30 0RF hydrocodone-acetaminophen 5-325 mg tablet 1 - 2 tablet PO Q6H PRN (Reason: pain) Qty: 20 0RF Continued albuterol sulfate [ProAir HFA] 90 mcg/actuation HFA aerosol inhaler 2 puff INHALATION Q4H PRN (Reason: Shortness Of Breath) tamsulosin 0.4 mg capsule 0.4 mg PO DAILY Label Comments: BID CURRENTLY fluticasone propion-salmeterol [Advair Diskus] 250-50 mcg/dose blister with device 1 inh INHALATION BID ciprofloxacin HCl [Cipro] 500 mg tablet 500 mg PO Q12H Qty: 14 0RF multivitamin Tablet 1 tablet PO DAILY sertraline 50 mg tablet See Rx Instructions .ROUTE .COMPLEX Qty: 90 1RF Dose Instruction: TAKE 1 TABLET BY MOUTH DAILY Rx Instructions: TAKE 1 TABLET BY MOUTH DAILY montelukast 10 mg tablet See Rx Instructions .ROUTE .COMPLEX Qty: 90 3RF Dose Instruction: TAKE ONE TABLET BY MOUTH ONCE DAILY Rx Instructions: TAKE ONE TABLET BY MOUTH ONCE DAILY meloxicam 15 mg tablet 15 mg PO DAILY Qty: 90 1RF Label Comments: TAKES PRN alprazolam 0.25 mg tablet 0.25 mg PO DAILY PRN (Reason: Anxiety) Qty: 30 0RF Held garlic Tablet 2 mg PO BID Hold Instructions: Resume on 11/10/22. Date of admission: 11/05/22 16:26 Primary Care Provider: Remy Vuong Admitting Provider: Cale Parker Attending physician on admission: Cale Parker Condition: Stable
--- NOTE | 2022-11-06 12:23 | PCRCNOTE ---
Window of time for administration has passed. See next scheduled administration.
== END 2022-11-06 13:15 | disposition home or self-care (01) ==
LOC: ANHSURGERY 16:28 → ANH2MED 16:28
PROVIDERS: Admitting Provider Urology; PCP Family Medicine; Visit Provider Urology
PROC: 0VT08ZZ Resection of Prostate, Via Natural or Artificial Opening Endoscopic (ICD-10-PCS; CPT 52601; principal; 2022-11-04 11:30)
DX: N40.1 Benign prostatic hyperplasia with lower urinary tract symptoms (principal); R39.198 Other difficulties with micturition; R33.9 Retention of urine, unspecified; F41.9 Anxiety disorder, unspecified; J44.9 Chronic obstructive pulmonary disease, unspecified; Z86.16 Personal history of COVID-19; F32.A Depression, unspecified; E78.5 Hyperlipidemia, unspecified; E66.3 Overweight; Z68.27 Body mass index [BMI] 27.0-27.9, adult; F10.90 Alcohol use, unspecified, uncomplicated; Z79.51 Long term (current) use of inhaled steroids; Z79.899 Other long term (current) drug therapy; Z87.442 Personal history of urinary calculi; Z87.898 Personal history of other specified conditions
CPT/HCPCS: 52601; 36415; 80048; 85014; 85018; 88305; 94640; A9270; C1757; G0378; J0690; J1100; J2370; J2405; J2704; J3010; J7030; J7120

== ENCOUNTER 2022-11-07 18:49 | Observation (INO) | payer OTHER, SELFPAY ==
--- NOTE | ~2022-11-07 | CT_ITS ---
Non-contrast CT scan of the Pelvis Clinical indication: Hematuria, recent TURP COMPARISON: 12/05/2020 Technique: 2.5 mm axial scans were obtained through the pelvis without intravenous or oral contrast. Dose reduction technique was used on this scan by utilizing automated exposure control and iterative reconstruction technique. The dose-length product (DLP) was 348.49 mGy-cm. Findings: Urinary bladder is well distended. There is apparent TURP defect in the enlarged prostate g land. Central prostatic calcifications are present. There is a more amorphous 1.6 cm lobulated hyperd ense area along the right side of the TURP defect, which possibly represents blood clot versus prosta te soft tissue (axial image 78 for example). No lymphadenopathy seen. Visualized bowel loops are unremarkable. No ascites. Visualized osseous structures are intact. Impression: 1.6 cm lobulated mildly hyperdense area along the right side of the TURP defect. This could reflect b lood clot/blood products. Hyperdense prosthetic soft tissue or other soft tissue is not completely ex cluded. Reviewed, dictated and finalized at location . Impression: 1.6 cm lobulated mildly hyperdense area along the right side of the TURP defect . This could reflect blood clot/blood products. Hyperdense prosthetic soft tiss ue or other soft tissue is not completely excluded.
[2022-11-07 19:10] VITALS: BP 121/73; PULSE 78; RESP 18; TEMP 36.9; O2SAT 97
[2022-11-07 22:32] VITALS: BP 119/75; PULSE 76; RESP 16; O2SAT 98
--- NOTE | 2022-11-07 23:10 | PC.NURSE ---
Report received from APRIL Alvarez. Assumed care of patient at this time.
--- NOTE | 2022-11-07 23:15 | ED.GENADULT ---
HPI - General Adult General Chief complaint: Urogenital-Male <Naman Watson PA-C - Last Filed: 11/08/22 02:49> Stated complaint: blood in urine <Naman Watson PA-C - Last Filed: 11/08/22 02:49> Time Seen by Provider: 11/07/22 22:32 <Naman Watson PA-C - Last Filed: 11/08/22 02:49> History of Present Illness HPI narrative: This is a 57-year-old male presents the ED with chief complaint of hematuria and urinary retention following an TURP procedure 3 days ago. Patient was discharged from urology yesterday. Today he is concerned as he is not been able to urinate fully since around 9 AM this morning. He self caths which she has been doing before the surgery, after the self cath he noticed clots that came out so he came to the ED. He was having some discomfort but notes that when he self cath his discomfort was slightly relieved. Denies abdominal pain, nausea, vomiting, fevers, chills. He has been taking his prescribed medications from his urology doctor. <Naman Watson PA-C - Last Filed: 11/08/22 02:49> Related Data Home medications: Home Medications Medication Instructions Recorded Confirmed albuterol sulfate 90 mcg/actuation 2 puff inhalation Q4H PRN 09/14/19 11/08/22 aerosol inhaler (ProAir HFA) Shortness Of Breath garlic 2 mg PO BID 05/06/20 11/08/22 multivitamin 1 tablet PO DAILY 05/06/20 11/08/22 fluticasone 250 mcg-salmeterol 50 1 inh inhalation BID 09/03/22 11/08/22 mcg/dose blistr powdr for inhalation (Advair Diskus) montelukast 10 mg tablet 10 mg PO DAILY 11/08/22 11/08/22 sertraline 50 mg tablet 50 mg PO DAILY 11/08/22 11/08/22 <Naman Watson PA-C - Last Filed: 11/08/22 02:49> Allergies/adverse reactions: Allergies Allergy/AdvReac Type Severity Reaction Status Date / Time sulfamethoxazole Allergy Severe HIVES Verified 11/07/22 22:32 trimethoprim Allergy Severe HIVES Verified 11/07/22 22:32 sulfite Allergy Mild Skin Verified 11/07/22 22:32 Reaction Penicillins Allergy Unknown UNKNOWN Verified 11/07/22 22:32 REACTION Sulfa (Sulfonamide Allergy Unknown Rash Verified 11/07/22 22:32 Antibiotics) aspirin AdvReac Mild Gastrointestinal Verified 11/07/22 22:32 Upset ibuprofen AdvReac Mild Gastrointestinal Verified 11/07/22 22:32 Upset NAPROXEN SODIUM AdvReac Mild Gastrointestinal Uncoded 11/07/22 22:32 Upset <Naman Watson PA-C - Last Filed: 11/08/22 02:49> Review of Systems Review of Systems: CONSTITUTIONAL: Denies fever, chills, or sweats. EYES: Denies visual changes, redness, or discharge. ENT: Denies rhinorrhea, congestion, sore throat, or otalgia. CARDIOVASCULAR: Denies chest pain, palpitations, or edema. RESPIRATORY: Denies cough or dyspnea. GASTROINTESTINAL: Denies abdominal pain, nausea, vomiting, or diarrhea. GENITOURINARY: Endorses urinary retention. Endorses hematuria. Denies dysuria or frequency. SKIN: Denies rash or itching. MUSCULOSKELETAL: Denies back pain, joint pain, or myalgia. NEUROLOGIC: Denies headache, numbness, dizziness, or weakness. PSYCHIATRIC: Denies anxiety or depression. <Naman Watson PA-C - Last Filed: 11/08/22 02:49> [facility] Past Medical History Medical History: Medical History Anxiety Asthma Calculus of kidney Colon polyp COPD (chronic obstructive pulmonary disease) COVID-19 Depression Enlarged prostate with lower urinary tract symptoms (LUTS) Mixed hyperlipidemia Obstructive sleep apnea do not use CPAP Overweight (BMI 25.0-29.9) Right rotator cuff tear Tubular adenoma of colon <Naman Watson PA-C - Last Filed: 11/08/22 02:49> Surgical History Surgical History: Surgical History H/O transurethral resection of prostate History of endoscopic sinus surgery <Naman Watson PA-C - Last Filed: 11/08/22 02:49> Family History Family History: Family History (Revie
--- NOTE | 2022-11-07 23:41 | PC.NURSE ---
Report given to Bushra RN
[2022-11-07 23:58] LABS: Basophils Absolute Auto 0.1 K/mm3 (0.0-0.1); Basophils Percent Auto 0.7 % (0.2-1.2); Eosinophils Absolute Auto 0.8 K/mm3 (0-0.3); Eosinophils Percent Auto 6.2 % (0-4.4); Hemoglobin 9.6 g/dL (14.0-18.0); Immature Granulocyte Absolute 0.08 K/mm3 (0.00-0.031); Immature Granulocyte Percent A 0.7 % (0-0.5); Lymphocytes Percent Auto 13.3 % (18.3-44.2); Mean Corpuscular HGB Conc 33.1 g/dl (32-36); Mean Corpuscular Hemoglobin 30.8 pg (26-34); Mean Corpuscular Volume 92.9 fl (80-100); Mean Platelet Volume 9.7 fl (7.4-10.4); Monocytes Absolute Auto 0.8 K/mm3 (0.1-0.6); Monocytes Percent Auto 6.8 % (2.6-8.5); Neutrophils Absolute Auto 8.7 K/mm3 (1.3-6.7); Neutrophils Percent Auto 72.3 % (45.5-73.1); Platelet Count Result 214 k/mm3 (150-375); Red Blood Count 3.12 M/mm3 (4.6-6.20); Red Cell Distribution Width 13.8 % (11.5-14.5)
[2022-11-08 00:16] LABS: Alanine Aminotransferase 21 U/L (6-50); Albumin Level 4.2 g/dL (3.5-5.1); Alkaline Phosphatase 64 U/L (38-126); Anion Gap 5 mmol/L (8-16); Aspartate Amino Transferase 31 U/L (17-59); Bilirubin,Total 0.9 mg/dL (0.2-1.3); Blood Urea Nitrogen 17 mg/dL (9-20); Calcium 8.6 mg/dL (8.4-10.2); Carbon Dioxide 26 mmol/L (22-30); Chloride 105 mmol/L (98-107); Estimated CRCL calculation 49 ml/min; Estimated Glomerular Filt Rate 52; Glucose 106 mg/dL (65-110); Potassium 4.1 mmol/L (3.4-5.0); Sodium 136 mmol/L (137-145)
[2022-11-08 00:42] VITALS: BP 106/62; PULSE 78; RESP 17; O2SAT 99
[2022-11-08 00:44] LABS: Appearance Urine Clear (Clear); Bilirubin Urine 3+ (Negative); Blood Urine 3+ (Negative); Color Urine Red (Yellow); Glucose Urine UA Trace mg/dL (Negative); Ketones Urine 1+ mg/dL (Negative); Leukocyte Esterase Ur 3+ LEU/UL (Negative); Nitrate Urine Negative (Negative); Protein Urine 3+ mg/dL (Negative); Specific Grav Ur <= 1.005 (1.001-1.035); pH Urine 8.5 (5.0-9.0)
[2022-11-08 00:48] LABS: RBC Urine >100 /hpf (0-2)
[2022-11-08 00:49] LABS: Add Urine Microscopic? YES
[2022-11-08 02:16] VITALS: BP 110/60; PULSE 69; RESP 18; TEMP 36.3; O2SAT 97; BMI 25.4
[2022-11-08 05:45] VITALS: BP 111/62; PULSE 81; RESP 18; TEMP 36.6; O2SAT 100
--- NOTE | 2022-11-08 07:05 | PM.IMHP ---
H&P: HPI History of Present Illness Date/Time: 11/08/22 07:05 Chief Complaint: Hematuria, difficulty urinating Narrative: Patient known to me, status post TURP 4 days ago. He initially went home on postop day 2 voiding freely with a scan hematuria. He did well for about 36 hours but then developed a sense of incomplete emptying. He tried to do self catheterization with little return. Thereafter he developed hematuria and presented to the emergency department. Bladder scan in the ED showed only 100 cc of urine and he was comfortable. He was admitted overnight for observation but had more difficulty this morning. Review of Systems Cardiovascular: Cardiovascular: Denies chest pain, Denies lightheadedness, Denies palpitations and Denies dyspnea Respiratory: Respiratory: Denies dyspnea Gastrointestinal: Gastrointestinal: Denies diarrhea, Denies nausea and Denies vomiting Genitourinary: Genitourinary: Reports hematuria and Denies dysuria Endocrine: Endocrine: Denies palpitations PMFSH Past Medical History Medical History Anxiety Asthma Calculus of kidney Colon polyp COPD (chronic obstructive pulmonary disease) COVID-19 Depression Enlarged prostate with lower urinary tract symptoms (LUTS) Mixed hyperlipidemia Obstructive sleep apnea do not use CPAP Overweight (BMI 25.0-29.9) Right rotator cuff tear Tubular adenoma of colon Surgical History Surgical History H/O transurethral resection of prostate History of endoscopic sinus surgery Family History Family History Mother Cerebrovascular accident Social History Social History Smoking status: Never smoker Alcohol intake: never Drinks per week: 2 Alcohol use details: 2-3/MONTH Substance use: never Substance use type: does not use Lack of Transportation: No Lack of Food: Never True Current Housing: I Have Housing Concerned About Future Housing: No Difficulty Paying Gas/Electric Bills: No Difficulty Paying for Meds: No Currently Unemployed: No Education: Bachelor's Degree Difficulty w/ Childcare or Family Care: No Living arrangements: with family Spiritual care concerns: No Meds Home Medications and Allergies Home Medications Medication Instructions Recorded Confirmed Type albuterol sulfate 90 mcg/actuation 2 puff inhalation Q4H PRN 09/14/19 11/08/22 History aerosol inhaler (ProAir HFA) Shortness Of Breath tamsulosin 0.4 mg capsule 0.4 mg PO BID 09/14/19 11/08/22 History garlic 2 mg PO BID 05/06/20 11/08/22 History multivitamin 1 tablet PO DAILY 05/06/20 11/08/22 History meloxicam 15 mg tablet 15 mg PO DAILY #90 tabs 07/29/22 11/08/22 Rx fluticasone 250 mcg-salmeterol 50 1 inh inhalation BID 09/03/22 11/08/22 History mcg/dose blistr powdr for inhalation (Advair Diskus) alprazolam 0.25 mg tablet 0.25 mg PO DAILY PRN Anxiety #30 11/01/22 11/08/22 Rx tabs ciprofloxacin HCl 500 mg tablet 500 mg PO Q12H #6 tabs 11/04/22 11/08/22 Rx docusate sodium 100 mg capsule 100 mg PO DAILY #30 caps 11/04/22 11/08/22 Rx (Colace) hydrocodone 5 mg-acetaminophen 325 1 - 2 tablet PO Q6H PRN pain #20 11/04/22 11/08/22 Rx mg tablet tabs montelukast 10 mg tablet 10 mg PO DAILY 11/08/22 11/08/22 History sertraline 50 mg tablet 50 mg PO DAILY 11/08/22 11/08/22 History Allergies Allergy/AdvReac Type Severity Reaction Status Date / Time sulfamethoxazole Allergy Severe HIVES Verified 11/07/22 22:32 trimethoprim Allergy Severe HIVES Verified 11/07/22 22:32 sulfite Allergy Mild Skin Verified 11/07/22 22:32 Reaction Penicillins Allergy Unknown UNKNOWN Verified 11/07/22 22:32 REACTION Sulfa (Sulfonamide Allergy Unknown Rash Verified 11/07/22 22:32 Antibiotics) aspirin AdvReac Mild Winter
[2022-11-08 14:00] VITALS: BP 100/64; PULSE 78; RESP 18; TEMP 36.9; O2SAT 98
--- NOTE | 2022-11-08 16:38 | PM.DS ---
DS: Admitting Diagnosis Discharge Date 11/08/2022 Admitting Diagnosis Transient hematuria after TURP DS: Summary Hospital Course Hospital Course: Transient hematuria without retention POD #3 following TURP. Hematuria resolved with placement 20F Coude' catheter without need for clot evacuation or other intervention. Time Spent with Patient Time attestation: Total time spent providing and/or coordinating discharge services: DS: Data Data Completed and Pending Labs on day of discharge: Labs from last 24 hours 11/08/22 11/07/22 11/07/22 00:25 23:33 23:33 WBC 12.0 H RBC 3.12 L Hgb 9.6 L Hct 29.0 L MCV 92.9 MCH 30.8 MCHC 33.1 RDW 13.8 Plt Count 214 MPV 9.7 Immature Gran % (Auto) 0.7 H Neut % (Auto) 72.3 Lymph % (Auto) 13.3 L [place] % (Auto) 6.8 Eos % (Auto) 6.2 H Baso % (Auto) 0.7 Lymph # (Auto) 1.60 [place] # (Auto) 0.8 H Eos # (Auto) 0.8 H Baso # (Auto) 0.1 Abs Immat Gran (auto) 0.08 H Absolute Neuts (auto) 8.7 H Absolute Nucleated RBC 0.0 Nucleated RBC % 0.0 Sodium 136 L Potassium 4.1 Chloride 105 Carbon Dioxide 26 Anion Gap 5 L BUN 17 Creatinine 1.40 H Estim Creat Clear Calc 49 Estimated GFR 52 L Glucose 106 Calcium 8.6 Total Bilirubin 0.9 AST 31 ALT 21 Alkaline Phosphatase 64 Total Protein 7.0 Albumin 4.2 Urine Color Red H Urine Appearance Clear Urine pH 8.5 Ur Specific [place] <= 1.005 Urine Protein 3+ H Urine Glucose (UA) Trace H Urine Ketones 1+ H Ur Blood (Man) 3+ H Urine Nitrate Negative Urine Bilirubin 3+ H Urine Urobilinogen 4.0 H Leukocyte Esterase Rfl 3+ H Urine RBC >100 H Urine WBC 10-15 H Discharge Plan Discharge Attending physician on discharge: Cale Parker Discharging Clinician: Cale Parker Patient Disposition: Home, Self-Care Activity: other - see discharge instructions Diet: other - see discharge instructions Discharge Instructions: 1) Activity: no driving or important decisions x24 hours. 2) Diet: resume your normal, pre-admission diet. 3. Santos catheter -> leg bag / large bag at night. 3) Follow-up: previously arranged. 4) Pt. to remove Santos catheter Wed. 11/10 am (please provide him with 10cc syringe for balloon) Patient Instructions: Antibiotic Form Stand Alone Forms: General Discharge Information Follow-up/Referrals: Cale Parker MD [Physician] - Discharge Medications: Continued albuterol sulfate [ProAir HFA] 90 mcg/actuation HFA aerosol inhaler 2 puff INHALATION Q4H PRN (Reason: Shortness Of Breath) fluticasone propion-salmeterol [Advair Diskus] 250-50 mcg/dose blister with device 1 inh INHALATION BID montelukast 10 mg tablet 10 mg PO DAILY Rx Instructions: TAKE ONE TABLET BY MOUTH ONCE DAILY sertraline 50 mg tablet 50 mg PO DAILY Rx Instructions: TAKE 1 TABLET BY MOUTH DAILY multivitamin Tablet 1 tablet PO DAILY ciprofloxacin HCl 500 mg tablet 500 mg PO Q12H Qty: 6 0RF docusate sodium [Colace] 100 mg capsule 100 mg PO DAILY Qty: 30 0RF hydrocodone-acetaminophen 5-325 mg tablet 1 - 2 tablet PO Q6H PRN (Reason: pain) Qty: 20 0RF meloxicam 15 mg tablet 15 mg PO DAILY Qty: 90 1RF Label Comments: TAKES PRN alprazolam 0.25 mg tablet 0.25 mg PO DAILY PRN (Reason: Anxiety) Qty: 30 0RF Held garlic Tablet 2 mg PO BID Hold Instructions: Resume on 11/10/22. Discontinued tamsulosin 0.4 mg capsule 0.4 mg PO BID Label Comments: BID CURRENTLY Date of admission: 11/08/22 00:29 Primary Care Provider: Remy Vuong Admitting Provider: Cale Parker Attending physician on admission: Cale Parker Condition: Stable
== END 2022-11-08 19:12 | disposition home or self-care (01) ==
LOC: ANHED 23:02 → ANH3MEDSUR 11-08 01:44
PROVIDERS: Admitting Provider Urology; Emergency Provider Physician Assistant; PCP Family Medicine; Visit Provider Urology
DX: R31.9 Hematuria, unspecified (principal); Z90.79 Acquired absence of other genital organ(s); R33.8 Other retention of urine; F41.9 Anxiety disorder, unspecified; J45.909 Unspecified asthma, uncomplicated; Z86.16 Personal history of COVID-19; J44.9 Chronic obstructive pulmonary disease, unspecified; F32.A Depression, unspecified; G47.33 Obstructive sleep apnea (adult) (pediatric); Z99.89 Dependence on other enabling machines and devices; E78.5 Hyperlipidemia, unspecified; E66.3 Overweight; Z68.25 Body mass index [BMI] 25.0-25.9, adult; Z79.51 Long term (current) use of inhaled steroids; Z79.899 Other long term (current) drug therapy
CPT/HCPCS: 36415; 51702; 72192; 80053; 81001; 85025; 87086; 99285; G0378

== ENCOUNTER 2024-12-25 09:47 | Outpatient (CLI) | payer SELFPAY ==
--- NOTE | ~2024-12-25 | CT_ITS ---
CT brain & sinus wo con Ordering provider: HOLA Garcia-C History: 59 years Male with . J32.9 - Chronic sinusitis, unspecified . Comparison: None. Technique: CT of the head without contrast. Radiation reduction technique utilized. The dose-length p roduct was 674.51 mGy-cm. FINDINGS: BRAIN PARENCHYMA AND CSF SPACES: Mild leukoaraiosis and diffuse cortical atrophy. Mild atheromatous d isease. No midline shift, mass effect or hemorrhage. The brain parenchyma and CSF spaces are otherwi se normal. VISUALIZED PARANASAL SINUSES: Soft tissue density is seen in the left frontal sinus area extending to the medial superior aspect of the left orbit which measures 1.5 x 2 cm. Destruction of the anterior wall of the left frontal sinus is noted. Bilateral ethmoid sinus disease is noted. Right frontal sinu s cystitis is also seen. Bilateral sphenoid sinus disease is seen. Soft tissue density is also extend ing to the left maxillary sinus and the nasal cavity. Postoperative changes seen in the medial wall o f the right maxillary sinus. MASTOIDS: Well aerated. BONES: The bones appear intact. SOFT TISSUES: Visualized nasopharynx is normal. Superficial soft tissues are normal. IMPRESSION: No acute intracranial findings. Pansinusitis. Soft tissue density in the left frontal sinus causing destruction of the anterior wall and extending to the medial aspect of the left orbit and to the subcutaneous tissue. Soft tissue density also exten ding from the left maxillary sinus to the left nasal cavity. Differential may include mucocele versus polyp versus esthesioneuroblastoma. Clinical correlation and follow-up advised. Reviewed, dictated and finalized at location A. IMPRESSION: No acute intracranial findings. Pansinusitis. Soft tissue density in the left frontal sinus causing destruction of the anteri or wall and extending to the medial aspect of the left orbit and to the subcuta neous tissue. Soft tissue density also extending from the left maxillary sinus to the left nasal cavity. Differential may include mucocele versus polyp versus esthesioneuroblastoma. Clinical correlation and follow-up advised.
== END 2024-12-25 09:48 | disposition home or self-care (01) ==
PROVIDERS: PCP Family Medicine; Visit Provider Nurse Practitioner Family
DX: J32.4 Chronic pansinusitis (principal); J34.89 Other specified disorders of nose and nasal sinuses; H57.10 Ocular pain, unspecified eye
CPT/HCPCS: 70450; 70486